=== PATIENT | female | born 1945 | race Caucasian/White ===

== ENCOUNTER → 2018-03-20 08:23 | Outpatient (CLI) | payer MEDICARE, SELFPAY ==
[2018-03-20 08:47] LABS: Basophils % 0.6 % (0.1-2.0); Eosinophils # 0.2 K/mm3 (0.0-0.4); Eosinophils % 3.8 % (0.1-12.0); Hematocrit 37.1 % (37.0-47.0); Hemoglobin 11.5 g/dL (12.2-16.2); Lymphocytes # 1.4 K/mm3 (0.7-4.5); Mean Corpuscular Hemoglobin 27.1 pg (27.0-31.2); Mean Corpuscular Volume 87.4 fl (81-99); Mean Platelet Volume 8.7 fl (7.4-10.4); Monocytes # 0.3 K/mm3 (0.1-1.0); Monocytes % 5.2 % (1.7-9.3); Neutrophils # 3.6 K/mm3 (1.8-7.8); Neutrophils % 65.3 % (37.0-80.0); Platelet Count 288 K/mm3 (142-424); Red Blood Count 4.24 M/mm3 (4.20-5.40); Red Cell Distribution Width 13.8 % (11.5-17.5); White Blood Count 5.4 K/mm3 (4.8-10.8)
[2018-03-20 13:37] LABS: Alanine Aminotransferase 14 U/L (12-78); Albumin Level 3.7 gm/dL (3.4-5.0); Alkaline Phosphatase 82 U/L (46-116); Anion Gap 6.4 mEq/L (5-15); Aspartate Amino Transferase 16 U/L (15-37); Bilirubin,Total 0.2 mg/dL (0.2-1.0); Blood Urea Nitrogen 12 mg/dL (7-18); Calcium 9.2 mg/dL (8.5-10.1); Carbon Dioxide 29 mmol/L (21.0-32.0); Chloride 105 mmol/L (98-107); Chol/HDL Ratio 3.4 (1-3.5); Cholesterol 166 mg/dL (140-200); Creatinine,Serum 0.99 mg/dL (0.55-1.02); Estimated Glomerular Filt Rate 55 ml/min (>60); GFR (African American) 66 ML/MIN (>60); Globulin 3.6 gm/dl (1.3-3.2); Glucose 102 mg/dL (74-106); HDL Cholesterol 49 mg/dL (29-89); LDL Cholesterol 100 mg/dL (0-130); Potassium 4.4 mmoL/L (3.5-5.1); Sodium 136 mmol/L (136-145); Thyroid Stimulating Hormone 1.71 uIU/ml (0.358-3.740); Total Protein,Serum 7.3 gm/dL (6.4-8.2); Triglycerides 83 mg/dL (30-200); VLDL Cholesterol 17 mg/dL (0-40)
[2018-03-22 06:17] LABS: Folate 18.1 ng/mL (>3.0); Vitamin B12 361 pg/mL (232-1245)
== END ==
PROVIDERS: Visit Provider Nurse Practitioner Family
DX: E53.8 Deficiency of other specified B group vitamins (principal); I10 Essential (primary) hypertension; E03.9 Hypothyroidism, unspecified; E78.5 Hyperlipidemia, unspecified; N28.9 Disorder of kidney and ureter, unspecified
CPT/HCPCS: 36415; 80053; 80061; 82607; 82746; 84443; 85025

== ENCOUNTER → 2018-06-15 14:53 | Outpatient (CLI) | payer MEDICARE, SELFPAY ==
--- NOTE | 2018-06-15 14:58 | XR_ITS ---
XR thoracic spine 3V Ordering Physician: Munira Contreras Patient Age: 73 years: Female HISTORY: ITS.REASON: ACUTE RT SIDE THORACIC BACK PAIN TECHNIQUE: AP lateral and oblique views of the thoracic spine COMPARISON :AP lateral chest. May 2010 FINDINGS Less than optimal but adequate visualization of the thoracic spine the lateral view. See no fracture nor subluxation. There are some perhaps some early degenerative disc changes , On AP view there is a notable dextroscoliosis through the mid & lower T-spine... Estimate likely near 20 degrees dextroscoliosis here. With this there is some disc space narrowing and marginal osteophytes most evident to the left at T9-10. Associated more pronounced levoscoliosis roughly 25 degrees incidentally noted upper L-spine & noted. It from pedicles intact. The descending aorta is tortuous and is a hiatal hernia seen on April 2017 CT chest which accounts for additional left paraspinal density the distal above GE junction. No new findings at the right margin or aspect of T-spine. No acute compression fracture Elevation right hemidiaphragm versus left again noted. ... IMPRESSION...... No acute fracture or findings at the thoracic spine. Overall Stable appearance Again note Moderate gradual dextroscoliosis through the mid & lower T-spine; with this degenerative disc space narrowing, reactive endplate changes and marginal osteophytes most notable to the left at T9/10 (this seen on previous CT study from April 2017 appears to be stable feature) More pronounced levoscoliosis upper L-spine again noted as well yields disc space narrowing to the right at several levels upper L-spine
== END ==
PROVIDERS: PCP Internal Medicine Adolescent Medicine; Visit Provider Nurse Practitioner Family
DX: M54.6 Pain in thoracic spine (principal)
CPT/HCPCS: 72072

== ENCOUNTER → 2019-03-26 08:52 | Outpatient (CLI) | payer MEDICARE, SELFPAY ==
--- NOTE | 2019-03-26 08:56 | XR_ITS ---
XR DEXA axial skeleton HISTORY: ITS.REASON: OSTEOPENIA ORDERING PHYSICIAN: Munira Contreras APRN PATIENT AGE: 73 years COMPARISON: None FINDINGS: The BMD measured at the Forearm Radius 33% femoral neck is 0.646 g/cm squared with a T score of -2.7. This is considered Osteoporotic according to the World Health Organization criteria. Fracture risk is High. Treatment is advised. The L1-L4 density has a T score of -0.9 and the left femoral neck density has a T score of -2.6. IMPRESSION: Osteoporosis with high fracture risk. Treatment is advised. Suggest follow-up exam in one year to monitor therapy
[2019-03-26 10:18] LABS: Basophils % 0.7 % (0.1-2.0); Eosinophils # 0.1 K/mm3 (0.0-0.4); Eosinophils % 2.2 % (0.1-12.0); Hematocrit 38.4 % (37.0-47.0); Hemoglobin 12.2 g/dL (12.2-16.2); Lymphocytes # 1.3 K/mm3 (0.7-4.5); Lymphocytes % 26.8 % (10-50); Mean Corpuscular HGB Conc 31.9 g/dL (31.8-35.4); Mean Corpuscular Hemoglobin 26.1 pg (27.0-31.2); Mean Platelet Volume 8.1 fl (7.4-10.4); Monocytes # 0.3 K/mm3 (0.1-1.0); Monocytes % 6.2 % (1.7-9.3); Neutrophils # 3.2 K/mm3 (1.8-7.8); Neutrophils % 64.1 % (37.0-80.0); Platelet Count 257 K/mm3 (142-424); Red Blood Count 4.68 M/mm3 (4.20-5.40)
[2019-03-26 11:12] LABS: Alanine Aminotransferase 16 U/L (12-78); Albumin Level 3.8 gm/dL (3.4-5.0); Alkaline Phosphatase 84 U/L (46-116); Anion Gap 13.8 mEq/L (5-15); Aspartate Amino Transferase 13 U/L (15-37); Bilirubin,Total 0.3 mg/dL (0.2-1.0); Blood Urea Nitrogen 18 mg/dL (7-18); Calcium 9.3 mg/dL (8.5-10.1); Carbon Dioxide 27 mmol/L (21.0-32.0); Chloride 104 mmol/L (98-107); Chol/HDL Ratio 3.5 (1-3.5); Cholesterol 173 mg/dL (140-200); Creatinine,Serum 0.98 mg/dL (0.55-1.02); Estimated Glomerular Filt Rate 55 ml/min (>60); GFR (African American) 67 ML/MIN (>60); Globulin 3.8 gm/dl (1.3-3.2); Glucose 99 mg/dL (74-106); HDL Cholesterol 49 mg/dL (29-89); LDL Cholesterol 108 mg/dL (0-130); Potassium 4.8 mmoL/L (3.5-5.1); Sodium 140 mmol/L (136-145); Thyroid Stimulating Hormone 2.71 uIU/ml (0.358-3.740); Total Protein,Serum 7.6 gm/dL (6.4-8.2); Triglycerides 80 mg/dL (30-200); VLDL Cholesterol 16 mg/dL (0-40)
[2019-03-27 06:08] LABS: Vitamin D 25 Hydroxy 25.8 ng/mL (30.0-100.0)
[2019-03-27 08:33] LABS: Vitamin B12 323 pg/mL (232-1245)
== END ==
PROVIDERS: PCP Internal Medicine Adolescent Medicine; Visit Provider Nurse Practitioner Family
DX: M85.89 Other specified disorders of bone density and structure, multiple sites (principal); Z13.820 Encounter for screening for osteoporosis; I10 Essential (primary) hypertension; E78.5 Hyperlipidemia, unspecified; E03.9 Hypothyroidism, unspecified; E53.8 Deficiency of other specified B group vitamins
CPT/HCPCS: 36415; 77080; 80053; 80061; 82607; 82652; 84443; 85025

== ENCOUNTER → 2019-06-19 14:39 | Outpatient (CLI) | payer MEDICARE, SELFPAY ==
--- NOTE | 2019-06-19 14:42 | MR_ITS ---
MR lumbar spine wo con, MR 3-d myelogram/MRCP HISTORY: PT states low back pain x8-10months. LT side low back pain, LT leg and groin pain. Hard to walk. Low back on LT side feels swollen. Pain has gotten worse. ITS.REASON: LOW BACK PAIN, UNSPECIFIED BACK PAIN LATERALLY, UNSPECIFIED ORDERING PHYSICIAN: Munira Contreras APRN PATIENT AGE: 74 years Comparison: None TECHNIQUE: Standard multiplanar multiecho sequences are performed without contrast. 3-D MIP and myelographic images are also rendered and reviewed FINDINGS: The spinal cord ends at the L1 level. There is mild lumbar scoliosis convex left with a rotary component with multilevel degenerative changes as described below. T10-T11: Degenerative disc disease with mild left foraminal narrowing from facet hypertrophic change. T11-T12: Mild degenerative disc disease with mild bulging disc with mild right-sided foraminal narrowing. T12-L1: Degenerative disc disease with bulging disc which is eccentric toward the right with mild right-sided foraminal narrowing. L1-L2: Degenerative disc disease with bulging discs somewhat eccentric toward the right with bilateral foraminal narrowing right greater than left. L2-L3: Degenerative disc disease with concentric bulging disc and facet hypertrophic change with moderate severe right-sided foraminal narrowing and mild left foraminal narrowing. L3-L4: Mild degenerative disc disease with mild bulging disc L4-5: Severe degenerative disc disease with type II endplate changes with bulging disc with associated facet and ligamentum flavum hypertrophy with moderate to severe left-sided foraminal narrowing and moderate left-sided lateral recess narrowing. There is a broad-based left foraminal and lateral disc protrusion with disc osteophyte complex contributing to the foraminal narrowing on the left. L5-S1: Degenerative disc disease with bulging disc along with facet and ligamentum flavum hypertrophy. There is severe left-sided foraminal narrowing from the bulging disc and facet hypertrophic change and moderate right-sided foraminal narrowing. No canal stenosis or extruded herniated disc. IMPRESSION: Abnormal MRI of the lumbar spine with multilevel lumbar spondylosis with degenerative disc disease, bulging disc, and facet and ligamentum flavum hypertrophy. This results in varying degrees of lateral recess and foraminal narrowing at multiple levels. Please see above for detailed description at each level. No disc herniation or canal stenosis.
== END ==
PROVIDERS: PCP Internal Medicine Adolescent Medicine; Visit Provider Nurse Practitioner Family
DX: M54.5 Low back pain (principal)
CPT/HCPCS: 72148; 76376

== ENCOUNTER → 2019-07-03 10:33 | Outpatient (POV) | payer MEDICARE, SELFPAY ==
[2019-07-03 10:40] VITALS: BP 190/92; PULSE 84; RESP 18; O2SAT 98; BMI 36.9
--- NOTE | 2019-07-03 12:19 | HMH.PMCON ---
Assessment and Plan (1) Spinal stenosis, lumbar region with neurogenic claudication Current visit: Yes Status: Chronic Category: Medical Code(s): M48.062 - Spinal stenosis, lumbar region with neurogenic claudication (2) Degenerative joint disease (DJD) of lumbar spine Current visit: Yes Status: Chronic Qualifiers: Spinal osteoarthritis complication: with radiculopathy Qualified Code(s): M47.26 - Other spondylosis with radiculopathy, lumbar region Category: Medical Code(s): M47.816 - Spondylosis without myelopathy or radiculopathy, lumbar region (3) Lumbar radiculopathy Current visit: Yes Status: Chronic Category: Medical Code(s): M54.16 - Radiculopathy, lumbar region - Assessment and plan all Dx Assessment and Plan for all problems:: Patient and I discussed different options. We will start with lumbar epidural steroid injection L4-L5 patient is not on any anticoagulation therapy. I believe it would be beneficial given her symptomology. I also replete discussed and provided information in regards to the mild procedure. Patient's been instructed to call the office if she has any issues prior to her next appointment. Dr. Dick has reviewed this note and agrees with this plan of care. This note was dictated using voice recognition software and may contain errors or omissions HPI - Data of Consult Consult date: 07/03/19 Requesting Physician: Ani Ibrahim APRN Primary Care Provider: Kyree Easley MD - Consult Narrative Reason for consult: Back pain, leg pain History of present illness: Ms. Hollingsworth is a 74 year old female who presents today for consultation in regards to her low back and leg pain. Patient has updated MRI showing severe degenerative disc disease along with ligamentum flavum hypertrophy at L4-L5 L5-S1. Patient states that her pain is worse when she standing or walking. She finds her self leaning forward to help relieve the pain. Patient and I had a thorough discussion in regards to her MRI. She rates her pain a 4 out of 10. She has had pain for several years however it is definitely worsened and it is now affecting her activities of daily living. She states that she is trying to continue a home stretching program. She utilizes heat and elevation. She has numbness and tingling in her left leg. CC: Ani Ibrahim APRN [facility] History I have reviewed the patient's past medical history: Yes Medical History: Reports:: Gastroesophageal Reflux Disease(GERD), Hyperlipidemia, Hypertension *Have you ever received a pneumonia vaccine?: Yes *Have you received a flu vaccine this season?: Yes Other Medical History: Reports: Arthritis, Thyroid Disease Laterality Cases: Right: Total Hip Replacement Other Surgeries: Yes: Cholecystectomy - *Social History Smoking Status: Unknown if ever smoked Alcohol Intake: never Substance Use Type: denies use *Occupational Status:: employed Housing: house Household Members: family *Travel in the last 8 weeks: None Family Hx:: No significant family history Review of Systems - Review of Systems ROS General: no recent weight change, no fever, no sleep disturbances Respiratory: no cough, no shortness of air, no recurring pulmonary infections Cardiovascular/Peripheral Vascular: No chest pain, No palpitations, no edema, no shortness of breath. Gastrointestinal: no incontinence, normal bowel movements reported Genitourinary: no incontinence Musculoskeletal: Back pain, leg pain Psychiatric: normal mood/ affect Neurological: Weakness in bilateral lower extremities with standing and walking, [denies balance issues] Meds Home Medications Medication Instructions Recorded Confirmed Type aspirin 81 mg tablet,delayed 81 mg PO DAILY tab 02/28/18 06/20/19 History release atorvastatin 40 mg tablet 40 mg PO DAILY tab 02/28/18 06/20/19 History esomeprazole magnesium 40 mg 40 mg PO DAILY cap 02/28/18 06/20/19 History capsu
--- NOTE | 2019-07-03 12:22 | P.CONS_ITS ---
Assessment and Plan (1) Spinal stenosis, lumbar region with neurogenic claudication Current visit: Yes Status: Chronic Category: Medical Code(s): M48.062 - Spinal stenosis, lumbar region with neurogenic claudication (2) Degenerative joint disease (DJD) of lumbar spine Current visit: Yes Status: Chronic Qualifiers: Spinal osteoarthritis complication: with radiculopathy Qualified Code(s): M47.26 - Other spondylosis with radiculopathy, lumbar region Category: Medical Code(s): M47.816 - Spondylosis without myelopathy or radiculopathy, lumbar region (3) Lumbar radiculopathy Current visit: Yes Status: Chronic Category: Medical Code(s): M54.16 - Radiculopathy, lumbar region - Assessment and plan all Dx Assessment and Plan for all problems:: Patient and I discussed different options. We will start with lumbar epidural steroid injection L4-L5 patient is not on any anticoagulation therapy. I believ e it would be beneficial given her symptomology. I also replete discussed and provided information in regards to the mild procedure. Patient's been instructed to call the office if she has any issues prior to her next appointment. Dr. Dick has reviewed this note and agrees with this plan of care. This note was dictated using voice recognition software and may contain errors or omissions HPI - Data of Consult Consult date: 07/03/19 Requesting Physician: Ani Ibrahim APRN Primary Care Provider: Kyree Easley MD - Consult Narrative Reason for consult: Back pain, leg pain History of present illness: Ms. Hollingsworth is a 74 year old female who presents today for consultation in regards to her low back and leg pain. Patient has updated MRI showing severe degenerative disc disease along with ligamentum flavum hypertrophy at L4-L5 L5- S1. Patient states that her pain is worse when she standing or walking. She finds her self leaning forward to help relieve the pain. Patient and I had a thorough discussion in regards to her MRI. She rates her pain a 4 out of 10. She has had pain for several years however it is definitely worsened and it is now affecting her activities of daily living. She states that she is trying to continue a home stretching program. She utilizes heat and elevation. She has numbness and tingling in her left leg. CC: Ani Ibrahim APRN [facility] History I have reviewed the patient's past medical history: Yes Medical History: Reports:: Gastroesophageal Reflux Disease(GERD), Hyperlipidemia, Hypertension *Have you ever received a pneumonia vaccine?: Yes *Have you received a flu vaccine this season?: Yes Other Medical History: Reports: Arthritis, Thyroid Disease Laterality Cases: Right: Total Hip Replacement Other Surgeries: Yes: Cholecystectomy - *Social History Smoking Status: Unknown if ever smoked Alcohol Intake: never Substance Use Type: denies use *Occupational Status:: employed Housing: house Household Members: family *Travel in the last 8 weeks: None Family Hx:: No significant family history Review of Systems - Review of Systems ROS General: no recent weight change, no fever, no sleep disturbances Respiratory: no cough, no shortness of air, no recurring pulmonary infections Cardiovascular/Peripheral Vascular: No chest pain, No palpitations, no edema, no shortness of breath. Gastrointestinal: no incontinence, normal bowel movements reported Genitourinary: no incontinence Musculoskeletal: Back pain, leg pain Psychiatric: normal mood/ affect Neurological: Weakness in bilateral lower ext
== END ==
PROVIDERS: PCP Internal Medicine Adolescent Medicine; Visit Provider Clinical Nurse Specialist Family Health
DX: M48.062 Spinal stenosis, lumbar region with neurogenic claudication (principal); M47.816 Spondylosis without myelopathy or radiculopathy, lumbar region
CPT/HCPCS: 99202

== ENCOUNTER → 2019-09-03 11:15 | Outpatient (POV) | payer MEDICARE, SELFPAY ==
[2019-09-03 11:36] VITALS: BP 133/85; PULSE 116; RESP 18; O2SAT 98; BMI 36.3
--- NOTE | 2019-09-03 12:10 | HMH.PAINSOAP ---
[facility] Pain Management SOAP Note Subjective:: Patient is a pleasant 74-year-old white female who presents today for follow-up after lumbar epidural steroid injection. Patient had 100% relief of her symptoms up until just recently. She does rate her pain a 0 out of 10 today. Patient and I discussed finishing her series of 3 epidurals. She like to move forward with this. Patient is asking for medicine to help with her back pain in the interim. I discussed with her utilizing an anti-inflammatory. ROS General: no recent weight change, no fever, no sleep disturbances Respiratory: no cough, no shortness of air, no recurring pulmonary infections Cardiovascular/Peripheral Vascular: No chest pain, No palpitations, no edema, no shortness of breath. Gastrointestinal: no incontinence, normal bowel movements reported Genitourinary: no incontinence Musculoskeletal: Back pain, leg pain Psychiatric: normal mood/ affect Neurological: [denies weakness in extremities], [denies balance issues] Objective:: Physical Exam General: Alert and oriented x3, no acute distress, pleasant and cooperative, [on room air] Lungs: Resps E/U, Symmetrical chest expansion, Eyes: PERRL Musculoskeletal: Flexion and extension of lumbar spine somewhat guarded secondary to pain, deep tendon reflexes normal, strength in upper and lower extremities [5/5], lightly antalgic gait noted Neurological: speech clear, automatic embroidery machine tender equal, no gross sensory deficits Assessment:: Degenerative disc disease lumbar spine with lumbar radiculopathy Plan:: We will do a repeat L4-L5 lumbar epidural steroid injection given the efficacy of it in the past I believe it would be beneficial. Patient's been instructed to call the office if she has any issues prior to her next appointment. She is not on any anticoagulation therapy. Dr. Dick has reviewed this note and agrees with this plan of care. This note was dictated using voice recognition software and may contain errors or omissions [facility] History I have reviewed the patient's past medical history: Yes Medical History: Reports:: Gastroesophageal Reflux Disease(GERD), Hyperlipidemia, Hypertension *Have you ever received a pneumonia vaccine?: Yes *Have you received a flu vaccine this season?: No Other Medical History: Reports: Arthritis, Thyroid Disease Laterality Cases: Right: Total Hip Replacement Other Surgeries: Yes: Cholecystectomy - *Social History Smoking Status: Unknown if ever smoked Alcohol Intake: never Substance Use Type: denies use *Occupational Status:: other Housing: house Household Members: family *Travel in the last 8 weeks: None Family Hx:: No significant family history
--- NOTE | 2019-09-03 12:13 | P.CONS_ITS ---
[facility] Pain Management SOAP Note Subjective:: Patient is a pleasant 74-year-old white female who presents today for follow-up after lumbar epidural steroid injection. Patient had 100% relief of her symptoms up until just recently. She does rate her pain a 0 out of 10 today. Patient and I discussed finishing her series of 3 epidurals. She like to move forward with this. Patient is asking for medicine to help with her back pain in the interim. I discussed with her utilizing an anti-inflammatory. ROS General: no recent weight change, no fever, no sleep disturbances Respiratory: no cough, no shortness of air, no recurring pulmonary infections Cardiovascular/Peripheral Vascular: No chest pain, No palpitations, no edema, no shortness of breath. Gastrointestinal: no incontinence, normal bowel movements reported Genitourinary: no incontinence Musculoskeletal: Back pain, leg pain Psychiatric: normal mood/ affect Neurological: [denies weakness in extremities], [denies balance issues] Objective:: Physical Exam General: Alert and oriented x3, no acute distress, pleasant and cooperative, [on room air] Lungs: Resps E/U, Symmetrical chest expansion, Eyes: PERRL Musculoskeletal: Flexion and extension of lumbar spine somewhat guarded secondary to pain, deep tendon reflexes normal, strength in upper and lower extremities [5/5], lightly antalgic gait noted Neurological: speech clear, mechanical engineering advisor equal, no gross sensory deficits Assessment:: Degenerative disc disease lumbar spine with lumbar radiculopathy Plan:: We will do a repeat L4-L5 lumbar epidural steroid injection given the efficacy of it in the past I believe it would be beneficial. Patient's been instructed to call the office if she has any issues prior to her next appointment. She is not on any anticoagulation therapy. Dr. Dick has reviewed this note and agrees with this plan of care. This note was dictated using voice recognition software and may contain errors or omissions [facility] History I have reviewed the patient's past medical history: Yes Medical History: Reports:: Gastroesophageal Reflux Disease(GERD), Hyperlipidemia, Hypertension *Have you ever received a pneumonia vaccine?: Yes *Have you received a flu vaccine this season?: No Other Medical History: Reports: Arthritis, Thyroid Disease Laterality Cases: Right: Total Hip Replacement Other Surgeries: Yes: Cholecystectomy - *Social History Smoking Status: Unknown if ever smoked Alcohol Intake: never Substance Use Type: denies use *Occupational Status:: other Housing: house Household Members: family *Travel in the last 8 weeks: None Family Hx:: No significant family history
== END ==
PROVIDERS: PCP Internal Medicine Adolescent Medicine; Visit Provider Clinical Nurse Specialist Family Health
DX: M51.16 Intervertebral disc disorders with radiculopathy, lumbar region (principal)
CPT/HCPCS: 99212

== ENCOUNTER → 2019-10-01 08:24 | Outpatient (CLI) | payer MEDICARE, SELFPAY ==
[2019-10-01 10:51] LABS: Alanine Aminotransferase 12 U/L (12-78); Albumin Level 3.3 gm/dL (3.4-5.0); Alkaline Phosphatase 60 U/L (46-116); Aspartate Amino Transferase 14 U/L (15-37); Bilirubin,Total 0.3 mg/dL (0.2-1.0); Blood Urea Nitrogen 9 mg/dL (7-18); Calcium 8.4 mg/dL (8.5-10.1); Carbon Dioxide 25 mmol/L (21.0-32.0); Chloride 106 mmol/L (98-107); Chol/HDL Ratio 4.1 (1-3.5); Cholesterol 154 mg/dL (140-200); Creatinine,Serum 0.85 mg/dL (0.55-1.02); Estimated Glomerular Filt Rate 65 ml/min (>60); GFR (African American) 79 ML/MIN (>60); Globulin 3.3 gm/dl (1.3-3.2); Glucose 95 mg/dL (74-106); HDL Cholesterol 38 mg/dL (29-89); LDL Cholesterol 91 mg/dL (0-130); Sodium 142 mmol/L (136-145); Thyroid Stimulating Hormone 1.36 uIU/ml (0.358-3.740); Total Protein,Serum 6.6 gm/dL (6.4-8.2); Triglycerides 126 mg/dL (30-200); VLDL Cholesterol 25 mg/dL (0-40)
[2019-10-02 09:20] LABS: Vitamin D 25 Hydroxy 44.3 ng/mL (30.0-100.0)
== END ==
PROVIDERS: Visit Provider Nurse Practitioner Family
DX: I10 Essential (primary) hypertension (principal); E78.5 Hyperlipidemia, unspecified; E03.9 Hypothyroidism, unspecified; E55.9 Vitamin D deficiency, unspecified; M81.0 Age-related osteoporosis without current pathological fracture
CPT/HCPCS: 36415; 80053; 80061; 82652; 84443

== ENCOUNTER → 2019-10-29 09:37 | Outpatient (POV) | payer MEDICARE, SELFPAY ==
[2019-10-29 10:20] VITALS: BP 151/67; PULSE 88; RESP 18; O2SAT 98; BMI 35.7
--- NOTE | 2019-10-29 10:26 | HMH.PAINSOAP ---
[facility] Pain Management SOAP Note Subjective:: Patient is a pleasant 74-year-old white female who presents today for0 follow-up. Patient rates her pain a 0 out of 10 she has completed her second lumbar epidural steroid injection. Patient overall doing well she states that when she sleeps at nighttime she does very good. Patient and I discussed her next step. We also discussed adding gabapentin at nighttime to see if this is beneficial for her. Patient would like to move forward with this. She denies trying this previously. ROS General: no recent weight change, no fever, no sleep disturbances Respiratory: no cough, no shortness of air, no recurring pulmonary infections Cardiovascular/Peripheral Vascular: No chest pain, No palpitations, no edema, no shortness of breath. Gastrointestinal: no new onset incontinence, normal bowel movements reported Genitourinary: no new onset incontinence Musculoskeletal: Back pain, left leg pain Psychiatric: normal mood/ affect Neurological: [denies new onset weakness in extremities], [denies new onset balance issues] Objective:: Physical Exam General: Alert and oriented x3, no acute distress, pleasant and cooperative, [on room air] Lungs: Resps E/U, Symmetrical chest expansion, Eyes: PERRL Musculoskeletal: Flexion and extension of lumbar spine somewhat guarded secondary to pain, deep tendon reflexes normal, strength in upper and lower extremities [5/5], slightly antalgic gait noted Neurological: speech clear, brusher machine equal, no gross sensory deficits Assessment:: Degenerative disc disease lumbar spine with lumbar radiculopathy Plan:: We will start the patient on gabapentin 100 mg 1 p.o. nightly. We will follow-up with her in 1 month reassess her symptoms at that time she is been instructed to call the office if she has any issues prior to her next appointment. Dr. Dick has reviewed this note and agrees with this plan of care. This note was dictated using voice recognition software and may contain errors or omissions [facility] History I have reviewed the patient's past medical history: Yes Medical History: Reports:: Gastroesophageal Reflux Disease(GERD), Hyperlipidemia, Hypertension Denies:: Diabetes Mellitus Type 1, Diabetes Mellitus Type 2 *Have you ever received a pneumonia vaccine?: Yes *Have you received a flu vaccine this season?: Yes Other Medical History: Reports: Arthritis, Thyroid Disease Laterality Cases: Right: Total Hip Replacement Other Surgeries: Yes: Cholecystectomy - *Social History Smoking Status: Unknown if ever smoked Alcohol Intake: never Substance Use Type: denies use *Occupational Status:: other Housing: house Household Members: family *Travel in the last 8 weeks: None Family Hx:: No significant family history
--- NOTE | 2019-10-29 10:29 | P.CONS_ITS ---
[facility] Pain Management SOAP Note Subjective:: Patient is a pleasant 74-year-old white female who presents today for0 follow- up. Patient rates her pain a 0 out of 10 she has completed her second lumbar epidural steroid injection. Patient overall doing well she states that when she sleeps at nighttime she does very good. Patient and I discussed her next step. We also discussed adding gabapentin at nighttime to see if this is beneficial for her. Patient would like to move forward with this. She denies trying this previously. ROS General: no recent weight change, no fever, no sleep disturbances Respiratory: no cough, no shortness of air, no recurring pulmonary infections Cardiovascular/Peripheral Vascular: No chest pain, No palpitations, no edema, no shortness of breath. Gastrointestinal: no new onset incontinence, normal bowel movements reported Genitourinary: no new onset incontinence Musculoskeletal: Back pain, left leg pain Psychiatric: normal mood/ affect Neurological: [denies new onset weakness in extremities], [denies new onset balance issues] Objective:: Physical Exam General: Alert and oriented x3, no acute distress, pleasant and cooperative, [on room air] Lungs: Resps E/U, Symmetrical chest expansion, Eyes: PERRL Musculoskeletal: Flexion and extension of lumbar spine somewhat guarded secondary to pain, deep tendon reflexes normal, strength in upper and lower extremities [5/5], slightly antalgic gait noted Neurological: speech clear, house wrecker equal, no gross sensory deficits Assessment:: Degenerative disc disease lumbar spine with lumbar radiculopathy Plan:: We will start the patient on gabapentin 100 mg 1 p.o. nightly. We will follow- up with her in 1 month reassess her symptoms at that time she is been instructed to call the office if she has any issues prior to her next appointment. Dr. Dick has reviewed this note and agrees with this plan of care. This note was dictated using voice recognition software and may contain errors or omissions [facility] History I have reviewed the patient's past medical history: Yes Medical History: Reports:: Gastroesophageal Reflux Disease(GERD), Hyperlipidemia, Hypertension Denies:: Diabetes Mellitus Type 1, Diabetes Mellitus Type 2 *Have you ever received a pneumonia vaccine?: Yes *Have you received a flu vaccine this season?: Yes Other Medical History: Reports: Arthritis, Thyroid Disease Laterality Cases: Right: Total Hip Replacement Other Surgeries: Yes: Cholecystectomy - *Social History Smoking Status: Unknown if ever smoked Alcohol Intake: never Substance Use Type: denies use *Occupational Status:: other Housing: house Household Members: family *Travel in the last 8 weeks: None Family Hx:: No significant family history
== END ==
PROVIDERS: PCP Internal Medicine Adolescent Medicine; Visit Provider Clinical Nurse Specialist Family Health
DX: M51.16 Intervertebral disc disorders with radiculopathy, lumbar region (principal)
CPT/HCPCS: 99212

== ENCOUNTER → 2019-11-27 09:30 | Outpatient (POV) | payer MEDICARE, SELFPAY ==
[2019-11-27 10:35] VITALS: BP 182/85; PULSE 85; RESP 18; O2SAT 99; BMI 26.1
--- NOTE | 2019-11-27 11:25 | P.CONS_ITS ---
[facility] Pain Management SOAP Note Subjective:: Patient is a pleasant 74-year-old white female who presents today for follow-up. Patient rates her pain a 3 out of 10 overall doing well. Patient is on gabapentin 100 mg at nighttime and is doing extremely well with this is helping her sleep. Patient has had 2 lumbar epidural steroid injections and is done extremely well with this getting 80% relief. She like to set 1 up in December. Most of her pain is in her back. ROS General: no recent weight change, no fever, no sleep disturbances Respiratory: no cough, no shortness of air, no recurring pulmonary infections Cardiovascular/Peripheral Vascular: No chest pain, No palpitations, no edema, no shortness of breath. Gastrointestinal: no new onset incontinence, normal bowel movements reported Genitourinary: no new onset incontinence Musculoskeletal: Back pain Psychiatric: normal mood/ affect Neurological: [denies new onset weakness in extremities], [denies new onset balance issues] Objective:: Physical Exam General: Alert and oriented x3, no acute distress, pleasant and cooperative, [on room air] Lungs: Resps E/U, Symmetrical chest expansion, Eyes: PERRL Musculoskeletal: Flexion and extension of lumbar spine somewhat guarded secondary to pain, deep tendon reflexes normal, strength in upper and lower extremities [5/5], [abnormal gait noted] Neurological: speech clear, 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 We will continue her on her gabapentin 100 mg 1 p.o. daily. She has been instructed to call the office if she has any issues prior to her next appointment. Dr. Dick has reviewed this note and agrees with this plan of care. This note was dictated using voice recognition software and may contain errors or omissions [facility] History I have reviewed the patient's past medical history: Yes Medical History: Reports:: Gastroesophageal Reflux Disease(GERD), Hyperlipidemia, Hypertension Denies:: Diabetes Mellitus Type 1, Diabetes Mellitus Type 2 *Have you ever received a pneumonia vaccine?: Yes *Have you received a flu vaccine this season?: Yes Other Medical History: Reports: Arthritis, Thyroid Disease Laterality Cases: Right: Total Hip Replacement Other Surgeries: Yes: Cholecystectomy - *Social History Smoking Status: Unknown if ever smoked Alcohol Intake: never Substance Use Type: denies use *Occupational Status:: other Housing: house Household Members: family *Travel in the last 8 weeks: None Family Hx:: No significant family history
== END ==
PROVIDERS: PCP Internal Medicine Adolescent Medicine; Visit Provider Clinical Nurse Specialist Family Health
DX: M51.16 Intervertebral disc disorders with radiculopathy, lumbar region (principal)
CPT/HCPCS: 99212

== ENCOUNTER → 2020-08-18 11:31 | Outpatient (CLI) | payer MEDICARE, SELFPAY ==
[2020-08-18 13:31] LABS: Chloride 103 mmol/L (98-107); Potassium 4.9 mmoL/L (3.5-5.1); Sodium 141 mmol/L (136-145)
[2020-08-18 13:34] LABS: Alanine Aminotransferase 10 U/L (12-78); Albumin Level 4.1 g/dl (3.5-5.0); Albumin/Globulin Ratio 1.4 (1.1-1.8); Alkaline Phosphatase 64 U/L (38-126); Anion Gap 15.9 mEq/L (5-15); Aspartate Amino Transferase 23 U/L (14-36); Bilirubin,Total 0.4 mg/dl (0.2-1.3); Blood Urea Nitrogen 16 mg/dl (7-17); Carbon Dioxide 27 mmol/L (22.0-30.0); Cholesterol 171 mg/dl (140-200); Estimated Glomerular Filt Rate 61 ml/min (>60); GFR (African American) 73 ML/MIN (>60); Glucose 93 mg/dl (74-100); HDL Cholesterol 50 mg/dl (40-60); Total Protein,Serum 7.1 g/dl (6.3-8.2); Triglycerides 112 mg/dl (30-150); VLDL Cholesterol 22 mg/dL (0-40)
[2020-08-18 13:48] LABS: Direct LDL Cholesterol 88.59 mg/dL (100-129)
[2020-08-18 14:06] LABS: Thyroid Stimulating Hormone 1.32 uIU/mL (0.465-4.68)
[2020-08-18 14:29] LABS: Chol/HDL Ratio 3.4 (1-3.5)
== END ==
PROVIDERS: Visit Provider Nurse Practitioner Family
DX: I10 Essential (primary) hypertension (principal); E78.5 Hyperlipidemia, unspecified; E03.9 Hypothyroidism, unspecified; M81.0 Age-related osteoporosis without current pathological fracture
CPT/HCPCS: 36415; 80053; 80061; 82306; 84443

== ENCOUNTER → 2020-08-25 12:50 | Outpatient (CLI) | payer MEDICARE, SELFPAY ==
--- NOTE | 2020-08-25 12:53 | CA_ITS ---
APPROVED REPORT EXAM: Comprehensive 2D, Doppler, and color-flow Echocardiogram Regulatory And Compliance Technician: Nika Kim RT(R) Ht: 5 ft 0 in Wt: 182lbs BSA: 1.79 BP: 132/80 mmHg Indications: HTN, hyperlipidemia, GERD, murmur 2D Dimensions LVOT 1.80 cm (M/F) 1.5-2.5 M-Mode Dimensions RVDd 2.68 cm (0.9-2.6) LVDd 4.32 cm (3.5-5.7) LVDs 3.38 cm (3.5-5.7) IVSd 0.87 cm (0.6-1.1) PWd 0.77 cm (0.6-1.1) EF (Teich) 44.30% FS 21.80% EDV (Teich) 84.00 mL ESV (Teich) 46.80 mL LV Diastology E/A Ratio 0.79 Aortic Valve LVOT Max 103.00 (70-110 cm/s) LVOT VTI 23.50 cm Mitral Valve MV A Velocity 118.00 (40-130 cm/s) Left Ventricle Left atrium is moderately enlarged, left ventricle is normal size, mild concentric left ventricular hypertrophy, visually estimated ejection fraction 55% with no regional wall motion abnormality, grade 1 diastolic dysfunction seen without tissue Doppler evidence of raise left atrial pressure. Right Ventricle Right atrium and right ventricle are mildly enlarged with normal contractility. Aortic Valve Aortic valve is thickened and calcified leaflet chordae display good mobility, there is no aortic stenosis or significant aortic insufficiency. Mitral Valve Mitral valve leaflets are minimally thickened, there is mild mitral regurgitation. Tricuspid Valve Tricuspid valve is grossly normal, there is mild tricuspid regurgitation, tricuspid regurgitation jet velocity is inadequate for calculation of the right ventricular systolic pressure. Pulmonic Valve Pulmonic valve is poorly visualized. Great Vessels Aortic root is normal size. Pericardium No significant pericardial effusion noted. Conclusion 1. Moderately enlarged left atrium, normal left ventricular size, mild concentric left ventricular hypertrophy, visually estimated ejection fraction 55% with no regional wall motion abnormality, grade 1 diastolic dysfunction seen without tissue Doppler evidence of raise left atrial pressure. 2. Mildly enlarged right atrium and right ventricle, contractility of the right ventricle is normal. 3. Mild mitral and tricuspid regurgitation. 4. No significant pericardial effusion noted. Electronically signed by : Brennan Coy, 08/25/2020 21:22:39
--- NOTE | 2020-08-25 13:41 | XR_ITS ---
PROCEDURE: XR DEXA AXIAL SKELETON CLINICAL HISTORY: AGE-RELATED OSTEOPOROSIS COMPARISON: CR DEXAAX XR DEXA axial skeleton from 03/26/2019 FINDINGS: The left forearm BMD is 0.493 with a T-score of -3.3. The left hip BMD is 0.611 with a T-score of -2.1. The lumbar spine BMD is 0.946 with a T-score of -0.9. Previously the lowest density was in the forearm with a T-score of -2.7. The bone density has decreased since the previous exam IMPRESSION: This patient is considered osteoporotic according to the World Health Organization criteria. Fracture risk is high. Treatment is advised. Based on these results a follow-up exam is recommended in 1 year. Dictated by: Pavan Bonner MD 08/26/2020 08:05 Pavan Bonner MD in [place] 08/26/2020 08:05
== END ==
PROVIDERS: PCP Internal Medicine Adolescent Medicine; Visit Provider Nurse Practitioner Family
DX: R06.00 Dyspnea, unspecified (principal); R01.1 Cardiac murmur, unspecified; I10 Essential (primary) hypertension; M81.0 Age-related osteoporosis without current pathological fracture
CPT/HCPCS: 77080; 93306

== ENCOUNTER 2020-10-07 09:30 | Outpatient (CLI) | payer MEDICARE, SELFPAY ==
[2020-10-07 10:05] VITALS: BP 141/74; PULSE 73; RESP 18; TEMP 36.6; O2SAT 95
== END 2020-10-07 10:05 | disposition home or self-care (01) ==
LOC: INF 09:35
PROVIDERS: Visit Provider Nurse Practitioner Family
DX: M81.0 Age-related osteoporosis without current pathological fracture (principal)
CPT/HCPCS: 96372; J0897

== ENCOUNTER 2021-04-07 09:30 | Outpatient (CLI) | payer MEDICARE, SELFPAY ==
[2021-04-07 09:50] VITALS: BP 163/76; PULSE 69; RESP 18; O2SAT 97
== END 2021-04-07 09:50 | disposition home or self-care (01) ==
LOC: INF 09:33
PROVIDERS: Visit Provider Nurse Practitioner Family
DX: M81.0 Age-related osteoporosis without current pathological fracture (principal)
CPT/HCPCS: 96372; J0897

== ENCOUNTER → 2021-06-22 07:55 | Outpatient (CLI) | payer MEDICARE, SELFPAY ==
[2021-06-22 08:41] LABS: Basophils % 0.8 % (0.1-2.0); Eosinophils # 0.2 K/mm3 (0.0-0.4); Eosinophils % 3.6 % (0.1-12.0); Hematocrit 36.8 % (37.0-47.0); Hemoglobin 11.8 g/dL (12.2-16.2); Lymphocytes # 1.5 K/mm3 (0.7-4.5); Lymphocytes % 27.8 % (10-50); Mean Corpuscular HGB Conc 31.9 g/dL (31.8-35.4); Mean Corpuscular Hemoglobin 25.7 pg (27.0-31.2); Mean Corpuscular Volume 80.3 fl (81-99); Mean Platelet Volume 7.6 fl (7.4-10.4); Monocytes # 0.3 K/mm3 (0.1-1.0); Monocytes % 6.5 % (1.7-9.3); Neutrophils # 3.2 K/mm3 (1.8-7.8); Neutrophils % 61.4 % (37.0-80.0); Platelet Count 281 K/mm3 (142-424); Red Blood Count 4.59 M/mm3 (4.20-5.40); Red Cell Distribution Width 16.5 % (11.5-17.5); White Blood Count 5.3 K/mm3 (4.8-10.8)
[2021-06-22 09:16] LABS: Chloride 107 mmol/L (98-107)
[2021-06-22 09:17] LABS: Potassium 4.5 mmoL/L (3.5-5.1); Sodium 142 mmol/L (136-145)
[2021-06-22 09:19] LABS: Alanine Aminotransferase 9 U/L (12-78); Anion Gap 10.5 mEq/L (5-15); Aspartate Amino Transferase 21 U/L (14-36); Blood Urea Nitrogen 12 mg/dl (7-17); Carbon Dioxide 29 mmol/L (22.0-30.0); Estimated Glomerular Filt Rate 61 ml/min (>60); GFR (African American) 73 ML/MIN (>60)
[2021-06-22 09:20] LABS: Albumin/Globulin Ratio 1.4 (1.1-1.8); Alkaline Phosphatase 70 U/L (38-126); Bilirubin,Total 0.2 mg/dl (0.2-1.3); Chol/HDL Ratio 2.8 (1-3.5); Cholesterol 137 mg/dl (140-200); Globulin 2.9 g/dL (1.3-3.2); Glucose 95 mg/dl (74-100); HDL Cholesterol 49 mg/dl (40-60); Total Protein,Serum 6.9 g/dl (6.3-8.2); Triglycerides 92 mg/dl (30-150); VLDL Cholesterol 18 mg/dL (0-40)
[2021-06-22 09:31] LABS: Direct LDL Cholesterol 63.64 mg/dL (100-129)
[2021-06-22 09:35] LABS: 25-OH Vitamin D, Total 76.5 ng/mL (30-100)
[2021-06-22 09:49] LABS: Thyroid Stimulating Hormone 2.39 uIU/mL (0.465-4.68)
[2021-06-22 15:35] LABS: Vitamin B12 > 1000 pg/mL (239-931)
== END ==
PROVIDERS: Visit Provider Nurse Practitioner Family
DX: I10 Essential (primary) hypertension (principal); E78.5 Hyperlipidemia, unspecified; E03.9 Hypothyroidism, unspecified; E53.8 Deficiency of other specified B group vitamins; E55.9 Vitamin D deficiency, unspecified; M81.0 Age-related osteoporosis without current pathological fracture
CPT/HCPCS: 36415; 80053; 80061; 82306; 82607; 84443; 85025

== ENCOUNTER → 2021-06-29 09:01 | Outpatient (POV) | payer MEDICARE, SELFPAY ==
[2021-06-29 09:31] VITALS: BP 145/70; PULSE 81; RESP 18; O2SAT 96; BMI 33.5
--- NOTE | 2021-06-29 09:45 | HMH.PAINSOAP ---
[facility] Pain Management SOAP Note Subjective:: Patient is a 76-year-old white female who presents today for follow-up. Patient was previously seen in the clinic for degenerative disc disease lumbar spine and lumbar radicular symptoms. She underwent a lumbar epidural steroid injection for which she got approximately 6 to 7 days of relief. Patient says that she had 100% relief for 5 days, her pain returned on the sixth day. Patient has tried injective therapy in the past which has not given her any significant long-term relief. She is currently on fentanyl Duragesic patch as well as gabapentin. She is continuing with pain despite the medications. She has tried physical therapy for greater than 6 weeks in the past and continues with home stretching. Patient is on Xarelto and is unable to take anticoagulation therapy. This was the patient's L4-L5 number 1 injection within our clinic. Patient was sent for psychological evaluation to determine if she was an appropriate candidate for intrathecal therapy. Patient has undergone injections in the past which only gave her, at most, 2 weeks of relief. At the patient's last visit, she did discuss intrathecal therapy and medications available for treatment. She is willing to wean on her fentanyl Duragesic patch to try morphine in her intrathecal pump. She understands she will need to be completely weaned from the medication before trial. She is in agreement. She did undergo a psychological evaluation was considered an appropriate candidate for intrathecal therapy. Patient does rate her pain a 6 out of 10 today. Review of Systems General: No recent weight changes, no fever, no sleep disturbances Respiratory: No cough, no shortness of air, no recurring pulmonary infections Cardiovascular/peripheral vascular: No chest pain, no palpitations, no edema, no shortness of breath Gastrointestinal: No new onset incontinence, normal bowel movements reported Genitourinary: No new onset incontinence Musculoskeletal: Low back pain with radiation into bilateral lower extremities Psychiatric: [Normal mood/affect] Neurological: [Denies weakness in extremities], [denies balance issues] Objective:: Physical exam General: Alert and oriented x3, no acute distress, pleasant and cooperative, [on room air] Lungs: Respirations even and unlabored, symmetrical chest expansion Eyes: PERRL Musculoskeletal: Flexion and extension of [] lumbar [spine] somewhat guarded secondary to pain, strength in upper and lower extremities [5/5], [antalgic gait noted] Neurological: Speech clear, [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 She plans to wean on her Duragesic patch of fentanyl. We discussed starting with morphine. She is in agreement. She says she has taken morphine in the past for pain which has been beneficial for her. She has tried and failed conservative therapies of physical therapy for more than 6 weeks and continued home stretching. She is unable to take anti-inflammatories due to Xarelto therapy. She has tried injective therapy in the past but has only gotten up to 2 weeks of relief. She is considered an appropriate candidate from psychological evaluation. We will schedule her for the trial and see her back afterwards for reevaluation of symptoms. She does understand she will need to hold her Xarelto prior to the trial. Risks and benefits of the procedure have been explained to the patient. Patient would like to proceed with the procedure. Patient has been instructed to contact the clinic with any concerns before the next appointment. Dr. Dick has reviewed this note and agrees with this plan of care. This note was dictated using voice recognition software and make contain errors or omissions. [facility] History I have reviewed the patient's
--- NOTE | 2021-06-29 09:51 | HMH.PAINSOAP ---
[facility] Pain Management SOAP Note Subjective:: Patient is a pleasant 76-year-old white female who presents today for follow-up. Patient was previously seen in the clinic for degenerative disc disease lumbar spine and lumbar radicular symptoms. She did undergo injective therapy and was started on Duexis. Patient says that she got excellent relief with Duexis. Unfortunately, her insurance will not cover the medication. She would have to pay [id number] $3000 for 3-month supply of the medication. She is unable to afford the medication. She says as result she has stopped the medicine. She says the injective therapy that she received in the clinic gave her relief of her lower extremity pain. Patient does report to be having a history of kidney issues as well. Patient I had a long discussion that anti-inflammatories would not be beneficial for her pain given her renal insufficiency. I have advised her to stop taking anti-inflammatories at this time. We did discuss trying a low-dose of tramadol for short time until she can undergo injective therapy. The patient did undergo lumbar epidural steroid injection at L4-L5 with 3 lumbar injections. Patient reports that she stopped coming to the clinic due to Covid. She is back today to discuss options for pain relief. She does rate her pain a 7 out of 10. Her pain is in her low back with radiation to bilateral sides and into the left leg. She is having constant pain that is not consistent with movement. She says that the pain in her left leg has changed from numbness to pain. Prior to her lumbar epidural steroid injection, she had numbness in her lower extremities. She does use a cane for ambulation. She has tried physical therapy in the past with no significant relief for 6 weeks. She is also continue with home stretching. Patient is not on any anticoagulation therapy. She is unable to take anti-inflammatories due to renal insufficiency. Review of Systems General: No recent weight changes, no fever, no sleep disturbances Respiratory: No cough, no shortness of air, no recurring pulmonary infections Cardiovascular/peripheral vascular: No chest pain, no palpitations, no edema, no shortness of breath Gastrointestinal: No new onset incontinence, normal bowel movements reported Genitourinary: No new onset incontinence Musculoskeletal: Low back pain with radiation into left leg Psychiatric: [Normal mood/affect] Neurological: [Denies weakness in extremities], [denies balance issues] Objective:: Physical exam General: Alert and oriented x3, no acute distress, pleasant and cooperative, [on room air] Lungs: Respirations even and unlabored, symmetrical chest expansion Eyes: PERRL Musculoskeletal: Flexion and extension of [] lumbar [spine] somewhat guarded secondary to pain, strength in upper and lower extremities [5/5], [antalgic gait noted] Neurological: Speech clear, [shot 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 She has had these injections in the past and has gotten significant relief up to 2 to 3 weeks at about 70 to 80%. We will order the patient tramadol 50 mg 1 tablet p.o. twice daily. She will continue with home stretching. She is unable to take anti-inflammatories due to renal insufficiency. We will see her back in the clinic after her injection for reevaluation of symptoms. She is not on any anticoagulation therapy. Risks and benefits of the procedure have been explained to the patient. Patient would like to proceed with the procedure. Possible side effects of corticosteroids have been discussed with the patient. Patient has been instructed to contact the clinic with any concerns before the next appointment. Dr. Dick has reviewed this note and agrees with this plan of care. This note was dictated us
== END ==
PROVIDERS: PCP Nurse Practitioner Family; Visit Provider Clinical Nurse Specialist Family Health
DX: M51.16 Intervertebral disc disorders with radiculopathy, lumbar region (principal)
CPT/HCPCS: 99212; G0463

== ENCOUNTER 2021-07-10 14:25 | Day surgery (SDC) | payer MEDICARE, SELFPAY ==
[2021-07-10 14:56] VITALS: BP 177/67; PULSE 91; RESP 18; TEMP 36.4; O2SAT 97; BMI 33.2
[2021-07-10 15:29] VITALS: BP 186/78; PULSE 90; RESP 18; O2SAT 96
[2021-07-10 15:30] VITALS: BP 186/78; PULSE 92; RESP 18; O2SAT 96
[2021-07-10 15:38] VITALS: BP 180/76; PULSE 91; RESP 20; O2SAT 97
--- NOTE | 2021-07-10 16:12 | HMH.PMPROC ---
- Procedure Date: 07/10/21 Time: 16:12 Anesthesiologist:: Sumeet Dick MD Complications:: None Pre-procedure Diagnosis:: Degenerative disc disease of lumbar spine with lumbar radiculopathy symptoms Post-procedure Diagnosis:: Same Indications for Procedure:: This patient is a pleasant 76-year-old white female who we are treating for low back pain with lumbar radiculopathy symptoms. She has increasing pain radiating down both legs. We will do a lumbar epidural steroid injection to see if this helps with her pain symptoms. She has benefited from these injections in the past. Procedure Details:: Informed consent was obtained and the risk and benefits of the procedure was explained to the patient. The patient was taken to the procedure room. The patient was placed prone on the procedure table. The patient was prepped and draped in sterile fashion. C-arm fluoroscopy was used to view the lumbar spine. Skin and subcutaneous tissues were anesthetized using lidocaine. I placed an 18-gauge epidural needle and advanced into the L4-L5 interspace using fluoroscopic guidance and [id number] to air. After confirmation of needle placement in the epidural space with dye I injected 2 mL of lidocaine 1.5% with Depo-Medrol 80 mg. Patient tolerated the procedure well with no complications. Plan and Disposition:: We will follow-up with this patient in 2 weeks. Will reevaluate her symptoms at that time.
== END 2021-07-10 15:39 | disposition home or self-care (01) ==
LOC: SC.PAINP 14:26
PROVIDERS: PCP Nurse Practitioner Family; Visit Provider Anesthesiology
DX: M51.16 Intervertebral disc disorders with radiculopathy, lumbar region (principal); E78.5 Hyperlipidemia, unspecified; I10 Essential (primary) hypertension; K21.9 Gastro-esophageal reflux disease without esophagitis; M19.90 Unspecified osteoarthritis, unspecified site; E03.9 Hypothyroidism, unspecified; N28.9 Disorder of kidney and ureter, unspecified; Z88.1 Allergy status to other antibiotic agents
CPT/HCPCS: 62323; J1040; Q9966

== ENCOUNTER → 2021-08-13 09:05 | Outpatient (POV) | payer MEDICARE, SELFPAY ==
[2021-08-13 09:14] VITALS: BP 155/99; PULSE 89; RESP 18; O2SAT 97; BMI 33.5
--- NOTE | 2021-08-13 09:29 | P.CONS_ITS ---
[facility] Pain Management SOAP Note Subjective:: Patient is a 76-year-old white female who presents today for follow-up after a lumbar epidural steroid injection. She is being treated for low back pain with lumbar radicular symptoms. She does have pain that goes into bilateral lower extremities and low back. She says that she got excellent relief with the injection. She rates her pain a 0 out of 10. Patient says the only time she is having pain is when she is bending forward. She says that this is intermittent. She says with bending forward the pain starts in her low back but it resolves once standing straight. She does not feel she wants to proceed with further injective therapy at this time. Her pain is appropriate at this time. Review of Systems General: No recent weight changes, no fever, no sleep disturbances Respiratory: No cough, no shortness of air, no recurring pulmonary infections Cardiovascular/peripheral vascular: No chest pain, no palpitations, no edema, no shortness of breath Gastrointestinal: No new onset incontinence, normal bowel movements reported Genitourinary: No new onset incontinence Musculoskeletal: No pain at this time Psychiatric: [Normal mood/affect] Neurological: [Denies weakness in extremities], [denies balance issues] Objective:: Physical exam General: Alert and oriented x3, no acute distress, pleasant and cooperative, [on room air] Lungs: Respirations even and unlabored, symmetrical chest expansion Eyes: PERRL Musculoskeletal: Flexion and extension of [] [spine] somewhat nonguarded, strength in upper and lower extremities [5/5], slightly antalgic gait Neurological: Speech clear, [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 She did well with her lumbar epidural steroid injection. The patient's pain is a 0 out of 10 today. Patient has been instructed to contact the clinic with any concerns before the next appointment. Dr. Dick has reviewed this note and agrees with this plan of care. This note was dictated using voice recognition software and make contain errors or omissions. [facility] History I have reviewed the patient's past medical history: Yes Medical History: Reports:: Gastroesophageal Reflux Disease(GERD), Hyperlipidemia, Hypertension Denies:: Cancer, Diabetes Mellitus Type 1, Diabetes Mellitus Type 2, MRSA, Seizures *Have you ever received a pneumonia vaccine?: Yes *Have you received a flu vaccine this season?: No Other Medical History: Reports: Arthritis, Hypothyroidism, Thyroid Disease. Denies: Blood Transfusion Reaction Laterality Cases: Right: Total Hip Replacement Other Surgeries: Yes: Cholecystectomy Amputation: No Fractures: No - *Social History Smoking Status: Never smoker Alcohol Intake: never Substance Use Type: denies use *Occupational Status:: unemployed Housing: house Household Members: spouse *Travel in the last 8 weeks: None Family Hx:: No significant family history
== END ==
PROVIDERS: PCP Internal Medicine Adolescent Medicine; Visit Provider Clinical Nurse Specialist Family Health
DX: M51.16 Intervertebral disc disorders with radiculopathy, lumbar region (principal)
CPT/HCPCS: 99212; G0463

== ENCOUNTER 2021-10-09 09:10 | Outpatient (CLI) | payer MEDICARE, SELFPAY ==
[2021-10-09 09:30] VITALS: BP 168/87; PULSE 87; RESP 18; O2SAT 98
== END 2021-10-09 09:30 | disposition home or self-care (01) ==
LOC: INF 09:12
PROVIDERS: PCP Internal Medicine Adolescent Medicine; Visit Provider Internal Medicine Adolescent Medicine
DX: M81.0 Age-related osteoporosis without current pathological fracture (principal)
CPT/HCPCS: 96372; J0897

== ENCOUNTER → 2021-11-12 08:58 | Outpatient (POV) | payer MEDICARE, SELFPAY ==
[2021-11-12 09:06] VITALS: BP 195/89; PULSE 72; RESP 18; O2SAT 96; BMI 33.5
--- NOTE | 2021-11-12 11:53 | HMH.PAINSOAP ---
[facility] Pain Management SOAP Note Subjective:: Patient is a 76-year-old who presents today for follow-up. She did undergo injective therapy with a lumbar epidural steroid injection in July 2021. She has gotten significant relief until recently. She is now having pain in her left low back area with radiation into left hip, left leg and numbness and tingling into the left foot. The pain is significantly worse below the knee. She says bending forward does not worsen or lessen the pain. She when sitting she has no pain. When she is standing, she has significant pain that also goes into the buttock. She describes the pain as sharp in nature. She is currently on methotrexate. She is not diabetic and denies being on any anticoagulation therapy. Today, she rates her pain an 8 out of 10. She would like to proceed with a repeat injection. She got up to 90% relief with her last lumbar epidural steroid injection until the last few weeks. She has tried home stretching in the past along with continued oral medications as needed. Review of Systems General: No recent weight changes, no fever, no sleep disturbances Respiratory: No cough, no shortness of air, no recurring pulmonary infections Cardiovascular/peripheral vascular: No chest pain, no palpitations, no edema, no shortness of breath Gastrointestinal: No new onset incontinence, normal bowel movements reported Genitourinary: No new onset incontinence Musculoskeletal: Low back pain with radiation into left buttock, left hip, left leg with numbness and tingling Psychiatric: [Normal mood/affect] Neurological: [Denies weakness in extremities], [denies balance issues] Objective:: Physical exam General: Alert and oriented x3, no acute distress, pleasant and cooperative Lungs: Respirations even and unlabored, symmetrical chest expansion Eyes: PERRL Musculoskeletal: Flexion and extension of lumbar [spine] somewhat guarded secondary to pain, [antalgic gait noted] Neurological: Speech clear, no gross sensory deficit Assessment:: Degenerative disc disease lumbar spine with lumbar radiculopathy symptoms Plan:: We will schedule patient for a repeat lumbar epidural steroid injection at L4-L5 area. She is not on any anticoagulation therapy. We will follow her after the injection for further evaluation of symptoms. She is got significant relief with injections in the past. Possible side effects of corticosteroids have been discussed with the patient. Risks and benefits of the procedure have been explained to the patient. Patient would like to proceed with the procedure. Patient has been instructed to contact the clinic with any concerns before the next appointment. Dr. Dick has reviewed this note and agrees with this plan of care. This note was dictated using voice recognition software and make contain errors or omissions. [facility] History I have reviewed the patient's past medical history: Yes Medical History: Reports:: Gastroesophageal Reflux Disease(GERD), Hyperlipidemia, Hypertension Denies:: Cancer, Diabetes Mellitus Type 1, Diabetes Mellitus Type 2, MRSA, Seizures *Have you ever received a pneumonia vaccine?: Yes *Have you received a flu vaccine this season?: Yes Other Medical History: Reports: Arthritis, Hypothyroidism, Thyroid Disease. Denies: Blood Transfusion Reaction Laterality Cases: Right: Total Hip Replacement Other Surgeries: Yes: Cholecystectomy Amputation: No Fractures: No - *Social History Smoking Status: Never smoker Alcohol Intake: never Substance Use Type: denies use *Occupational Status:: unemployed Housing: house Household Members: spouse *Travel in the last 8 weeks: None Family Hx:: No significant family history
== END ==
PROVIDERS: Visit Provider Clinical Nurse Specialist Family Health
DX: M51.16 Intervertebral disc disorders with radiculopathy, lumbar region (principal)
CPT/HCPCS: 99212; G0463

== ENCOUNTER 2021-12-04 13:09 | Day surgery (SDC) | payer MEDICARE, SELFPAY ==
[2021-12-04 13:22] VITALS: BP 190/82; PULSE 85; RESP 20; TEMP 36.4; O2SAT 96; BMI 33.5
--- NOTE | 2021-12-04 13:48 | HMH.PMPROC ---
- Procedure Date: 12/04/21 Time: 13:48 Anesthesiologist:: Gertrude Hampton MD Complications:: None Pre-procedure Diagnosis:: Degenerative disc disease of the lumbar spine with lumbar radiculopathy Post-procedure Diagnosis:: Same Indications for Procedure:: This patient is a very pleasant 76-year-old white female who presents today with chronic low back pain radiating to her legs related to the above diagnosis. She has trialed and failed conservative treatment including oral pain medications and home stretching program for greater than 6 weeks. He has previously undergone a lumbar epidural steroid injection and notes 90% pain relief for a few months but she states the pain has since returned. She is requesting a repeat injection today. The plan for today is for the patient to undergo epidural steroid injection under fluoroscopy at L5-S1. Procedure Details:: Informed consent was obtained and the risk and benefits of the procedure was explained to the patient. The patient was taken to the procedure room. The patient was placed prone on the procedure table. The patient was prepped and draped in sterile fashion. C-arm fluoroscopy was used to view the lumbar spine. Skin and subcutaneous tissues were anesthetized using lidocaine. I placed an 18-gauge epidural needle and advanced into the L5-S1 interspace using fluoroscopic guidance and [id number] to air and saline. After confirmation of needle placement in the epidural space with dye I injected 1 mL of lidocaine 1.0% with Depo-Medrol 80 mg. Patient tolerated the procedure well with no complications. Plan and Disposition:: We will follow-up with this patient in 2 weeks. Will reevaluate pain symptoms at that time.
[2021-12-04 13:53] VITALS: BP 182/79; PULSE 79; PULSE 83; RESP 18; O2SAT 96
[2021-12-04 14:05] VITALS: BP 166/85; PULSE 81; RESP 20; O2SAT 94
== END 2021-12-04 14:05 | disposition home or self-care (01) ==
LOC: SC.PAINP 13:10
PROVIDERS: PCP Internal Medicine Adolescent Medicine; Visit Provider Anesthesiology Pain Medicine
DX: M51.16 Intervertebral disc disorders with radiculopathy, lumbar region (principal); I10 Essential (primary) hypertension; E78.5 Hyperlipidemia, unspecified; K21.9 Gastro-esophageal reflux disease without esophagitis; E03.9 Hypothyroidism, unspecified; Z88.1 Allergy status to other antibiotic agents
CPT/HCPCS: 62323; J1040; Q9966

== ENCOUNTER → 2022-01-04 08:53 | Outpatient (POV) | payer MEDICARE, SELFPAY ==
[2022-01-04 09:07] VITALS: BP 187/72; PULSE 79; RESP 18; TEMP 36.3; O2SAT 98; BMI 33.2
--- NOTE | 2022-01-04 10:03 | HMH.PMCON ---
Assessment and Plan (1) Lumbar radiculopathy Status: Chronic Category: Medical Code(s): M54.16 - Radiculopathy, lumbar region (2) Degenerative joint disease (DJD) of lumbar spine Status: Chronic Qualifiers: Category: Medical Code(s): M47.816 - Spondylosis without myelopathy or radiculopathy, lumbar region (3) Spinal stenosis, lumbar region with neurogenic claudication Status: Chronic Category: Medical Code(s): M48.062 - Spinal stenosis, lumbar region with neurogenic claudication Patient recently underwent a lumbar epidural steroid injection under fluoroscopy at L5-S1 on December 04, 2021 and notes 70% pain relief that is ongoing at this time. She is very satisfied with the results of this injection. I discussed with the patient we will follow-up with her in 4 weeks for reassessment and possible repeat injection should the pain start to return. I discussed with the patient to contact her clinic sooner should any issues arise. [facility] #[id number] and prior drug screens were reviewed and appropriate. HPI - Data of Consult Patient: known to practice within the last 3 years Requesting Physician: Gertrude Hampton MD - Consult Narrative History of present illness: Ms. Hollingsworth is a 76 year old female CC: Gertrude Hampton MD [facility] History Medical History: Reports:: Gastroesophageal Reflux Disease(GERD), Hyperlipidemia, Hypertension Denies:: Cancer, Diabetes Mellitus Type 1, Diabetes Mellitus Type 2, MRSA, Seizures *Have you ever received a pneumonia vaccine?: Yes *Have you received a flu vaccine this season?: Yes Other Medical History: Reports: Arthritis, Hypothyroidism, Thyroid Disease. Denies: Blood Transfusion Reaction Laterality Cases: Right: Total Hip Replacement Other Surgeries: Yes: Cholecystectomy Amputation: No Fractures: No - *Social History Smoking Status: Never smoker Alcohol Intake: never Substance Use Type: denies use *Occupational Status:: retired Housing: house Household Members: spouse *Travel in the last 8 weeks: None Family Hx:: Other Review of Systems - Review of Systems Review of systems:: pertinent systems reviewed and negative unless documented below Meds Home Medications Medication Instructions Recorded Confirmed Type aspirin 81 mg tablet,delayed 81 mg PO DAILY tab 02/28/18 01/04/22 History release atorvastatin 40 mg tablet 40 mg PO DAILY tab 02/28/18 01/04/22 History esomeprazole magnesium 40 mg 40 mg PO DAILY cap 02/28/18 01/04/22 History capsule,delayed release estradiol 1 g VAGINAL ONCE 02/28/18 01/04/22 History levothyroxine 50 mcg capsule 50 mcg PO DAILY cap 02/28/18 01/04/22 History metoprolol succinate 100 mg 100 mg PO DAILY tab 02/28/18 01/04/22 History tablet,extended release 24 hr mirabegron 50 mg tablet,extended 50 mg PO Q24H 02/28/18 01/04/22 History release 24 hr erythromycin 5 mg/gram (0.5 %) eye 1 applic OPHTHALMIC DAILY 7 Days 06/20/19 01/04/22 Rx ointment #1 g Gabapentin [Neurontin 100mg 100 mg PO HS 12/07/19 01/04/22 History cap] Tramadol HCl [Tramadol 50mg 50 mg PO BID 07/10/21 01/04/22 History Tab] Allergies Allergy/AdvReac Type Severity Reaction Status Date / Time sulfamethoxazole Allergy Unknown I-RASH Verified 07/10/21 15:21 [From BACTRIM] trimethoprim [From BACTRIM] Allergy Unknown I-RASH Verified 07/10/21 15:21 Objective Vital signs: Temp Pulse Resp BP Pulse Ox 97.4 F L 79 18 187/72 H 98 01/04/22 09:07 01/04/22 09:07 01/04/22 09:07 01/04/22 09:07 01/04/22 09:07 Narrative: General: Alert and oriented x3, no acute distress, pleasant and cooperative, [on room air] Lungs: Respirations even and unlabored, symmetrical chest expansion Eyes: PERRL Musculoskeletal: Flexion and extension of lumbar spine somewhat guarded secondary to pain, antalgic gait noted Neurological: Speech clear, no gross sensory deficit
== END ==
PROVIDERS: Visit Provider Anesthesiology Pain Medicine
DX: M54.16 Radiculopathy, lumbar region (principal); M47.816 Spondylosis without myelopathy or radiculopathy, lumbar region; M48.062 Spinal stenosis, lumbar region with neurogenic claudication
CPT/HCPCS: 99212; G0463

== ENCOUNTER 2022-04-09 09:29 | Outpatient (CLI) | payer MEDICARE, SELFPAY ==
[2022-04-09 10:01] VITALS: BP 148/77; PULSE 70; RESP 20; TEMP 36.9; O2SAT 95
[2022-04-09 10:15] VITALS: BP 145/78; PULSE 68; RESP 20; TEMP 36.9; O2SAT 95
== END 2022-04-09 09:50 | disposition home or self-care (01) ==
LOC: INF 09:31
PROVIDERS: PCP Internal Medicine Adolescent Medicine; Visit Provider Internal Medicine Adolescent Medicine
DX: M81.0 Age-related osteoporosis without current pathological fracture (principal)
CPT/HCPCS: 96372; J0897

== ENCOUNTER → 2022-06-16 08:52 | Outpatient (CLI) | payer MEDICARE, SELFPAY ==
--- NOTE | 2022-06-16 08:57 | XR_ITS ---
FINAL REPORT TECHNIQUE: Bone densitometry calculations of the lumbar spine and left hip were obtained. CLINICAL HISTORY: postmenopausal screening COMPARISON: 08/25/2020 FINDINGS: Using L1-4, the bone mineral density of the spine is 1.027 g/cm2, corresponding to T-score of -0.2 which is normal. Using the left hip, the bone mineral density of the femoral neck is 0.734 g/cm2, corresponding to a T-score of -1.7 consistent with osteopenia. This has improved slightly as compared to the prior exam. Using the right forearm, the bone mineral density of the proximal 3rd is 0.420 g/cm2, corresponding to a T-score of -4.6 consistent with osteoporosis. This is worse as compared to the prior exam. NOTE: T-score: Standard deviation compared with peak bone mass of young adult mean. *Following the recommendations of the International Society of Bone densitometry, classification of hip BMD is based on the lower of two T-scores; total hip or femoral neck. IMPRESSION: Normal bone mineral density in the lumbar spine. Osteopenia in the left femoral neck, slightly improved as compared to the prior exam. Osteoporosis in the right forearm, worsened as compared to the prior exam. Reviewed, Interpreted and Dictated by Jannette Reveles MD Transcribed by Kim Lee Authenticated and [facility]
== END ==
PROVIDERS: PCP Internal Medicine Adolescent Medicine; Visit Provider Nurse Practitioner Family
DX: Z78.0 Asymptomatic menopausal state (principal)
CPT/HCPCS: 77080

== ENCOUNTER 2022-10-12 08:53 | Outpatient (CLI) | payer MEDICARE, SELFPAY ==
[2022-10-12 09:02] VITALS: BP 180/75; PULSE 73; RESP 18; O2SAT 98
== END 2022-10-12 09:20 | disposition home or self-care (01) ==
LOC: INF 08:54
PROVIDERS: PCP Internal Medicine Adolescent Medicine; Visit Provider Internal Medicine Adolescent Medicine
DX: M85.831 Other specified disorders of bone density and structure, right forearm (principal)
CPT/HCPCS: 96372; J0897

== ENCOUNTER → 2022-11-18 13:49 | Outpatient (POV) | payer MEDICARE, SELFPAY ==
--- NOTE | 2022-11-18 13:57 | EXP.PAIN.SOA ---
[facility] Pain Management SOAP Note Subjective:: Patient is a pleasant 77-year-old female who presents today for follow-up. We are currently treating the patient for degenerative disc disease of the lumbar spine with lumbar radiculopathy symptoms, spinal stenosis with neurogenic claudication. Today she rates her pain a 6 out of 10. Patient denies any new trauma or injury. Patient denies any change location or type of pain she experiences. Patient states she continues to have low back pain that radiates into her bilateral lower extremities. She describes this as a aching, throbbing sensation that is worse with increased activity. Patient has had multiple epidurals in the past that provided significant improvement of her symptoms. She was requesting another injection at today's visit. Patient states she does currently use [id number] ibuprofen and Voltaren gel for her pain related symptoms. Patient is not on any scheduled medications. Her Martin is [id number]. Review of Systems: General: No recent weight changes, no fever, no sleep disturbances Respiratory: No cough, no shortness of air, no recurring pulmonary infections Cardiovascular/peripheral vascular: No chest pain, no palpitations, no edema, no shortness of breath Gastrointestinal: No new onset incontinence, normal bowel movements reported Genitourinary: No new onset incontinence Musculoskeletal: Low back pain Psychiatric: [Normal mood/affect] Neurological: [Denies weakness in extremities], [denies balance issues] Objective:: Physical Exam: General: Alert and oriented x3, no acute distress, pleasant and cooperative Lungs: Respirations even and unlabored, symmetrical chest expansion Eyes: PERRL Musculoskeletal: Flexion and extension of lumbar [spine] somewhat guarded secondary to pain, [antalgic gait noted] Neurological: Speech clear, no gross sensory deficit Assessment:: Degenerative disc disease of lumbar spine with lumbar radiculopathy symptoms, spinal stenosis with neurogenic claudication Plan:: Patient continues to experience significant pain in her low back with radiating symptoms into her lower extremities. Patient had limited range of motion of her lumbar spine during today's visit. I have recommended that the patient may benefit from repeat lumbar epidural. Risk and benefits were discussed with the patient. She would like to proceed forward with this plan of care. Patient is not on any blood thinners. We will schedule her for an LESI L4-L5. Patient has been instructed to contact the clinic with any concerns before the next appointment. Dr. Dick has reviewed this note and agrees with this plan of care. This note was dictated using voice recognition software and make contain errors or omissions. [facility] Disclaimer: The information contained in this section may have been updated after the patient was seen, as this information can be updated by other users. Social History Smoking Status: Never smoker alcohol intake: never substance use type: denies use current occupational status: retired Travel in the last 8 weeks: None household members: spouse housing: alf current occupational exposures/hazards: No caffeine: Yes
[2022-11-18 14:16] VITALS: BP 200/99; PULSE 90; RESP 18; O2SAT 97; BMI 35.7
== END ==
PROVIDERS: PCP Internal Medicine Adolescent Medicine; Visit Provider Nurse Practitioner Family
DX: M51.16 Intervertebral disc disorders with radiculopathy, lumbar region (principal); M48.061 Spinal stenosis, lumbar region without neurogenic claudication; Z79.899 Other long term (current) drug therapy
CPT/HCPCS: 99212; G0463

== ENCOUNTER 2022-12-07 10:58 | Day surgery (SDC) | payer MEDICARE, SELFPAY ==
[2022-12-07 11:29] VITALS: BP 193/83; PULSE 68; RESP 18; TEMP 36.6; O2SAT 92; BMI 35.2
[2022-12-07 11:51] VITALS: BP 190/90; PULSE 90; RESP 18; O2SAT 98
--- NOTE | 2022-12-07 11:52 | EXP.PAIN.PRO ---
Procedure Date: 12/07/22 Time: 11:52 Anesthesiologist:: Magnus Franco CRNA Complications:: None Pre-procedure Diagnosis:: Degenerative disc disease of lumbar spine with lumbar radiculopathy symptoms, spinal stenosis with neurogenic claudication Post-procedure Diagnosis:: Same Indications for Procedure:: Patient is a pleasant 77-year-old female who presents today for lumbar epidural steroid injection at L4-L5. We are currently treating the patient for degenerative disc disease of lumbar spine with lumbar radiculopathy symptoms, spinal stenosis with neurogenic claudication. Today she rates her pain a 6 out of 10. Patient denies any new trauma or injury. Patient denies any change in location or type of pain she experiences. Patient states her pain is a aching throbbing sensation that is worse with increased activity and goes from her low back down into her legs. Patient's Martin has been reviewed and is appropriate. Procedure Details:: Informed consent was obtained and the risks and benefits of the procedure were explained to the patient. The patient was taken to the procedure room and noninvasive monitors placed, including noninvasive blood pressure cuff and pulse oximeter. The back was viewed using C-arm Fluoroscopy and prepped using Chloraprep as a cleansing solution and the L4-L5 interspace was palpated. Skin and subcutaneous tissues were anesthetized using lidocaine 1.5% and a 25-gauge needle. After this, an 18-gauge Touhy epidural needle was placed into the L4-L5 interspace and advanced using fluoroscopic guidance and loss of resistance to air until the epidural space was encountered. After confirmation of needle placement in the epidural space, with dye, a solution containing normal saline, 3 mL and Depo-Medrol 80 mg were incrementally injected into the lumbar epidural space. The patient tolerated the procedure well with no complications. The patient was observed in the Pain Clinic and then discharged home neurologically intact. Plan and Disposition:: Patient will return to clinic in 2 weeks for reevaluation of symptoms and follow-up. Patient has been counseled to contact the office with any questions or concerns before the next appointment date. Dr. Dick has read this note and agrees with this plan of care. This note was dictated using voice recognition software and may contain errors or omissions.
[2022-12-07 11:55] VITALS: BP 166/64; PULSE 77; RESP 18; O2SAT 92
[2022-12-07 11:56] VITALS: BP 190/90; PULSE 90; RESP 18; O2SAT 98
== END 2022-12-07 11:55 | disposition home or self-care (01) ==
PROVIDERS: PCP Internal Medicine Adolescent Medicine; Visit Provider Nurse Anesthetist, Certified Registered
DX: M51.16 Intervertebral disc disorders with radiculopathy, lumbar region (principal); M48.062 Spinal stenosis, lumbar region with neurogenic claudication
CPT/HCPCS: 62323; J1040

== ENCOUNTER → 2022-12-20 10:48 | Outpatient (POV) | payer MEDICARE, SELFPAY ==
[2022-12-20 11:20] VITALS: BP 173/68; PULSE 81; RESP 18; O2SAT 97; BMI 35.2
--- NOTE | 2022-12-20 13:09 | EXP.PAIN.SOA ---
[facility] Pain Management SOAP Note Subjective:: Patient is a pleasant 77-year-old female who presents today for follow-up of lumbar epidural steroid injection at L4-L5 on 12/07/2022. We are currently treating the patient for degenerative disc disease of lumbar spine with lumbar radiculopathy symptoms, spinal stenosis with neurogenic claudication. Today she states she has had at least 50% improvement following this injection and feels like it still providing significant relief. Patient states her leg is much better however she still continues to have some back pain. Patient denies any new trauma or injury. Patient denies any change location or type of pain she experiences. Patient does use a cane for ambulation. Patient states she does use [id number] ibuprofen with some additional improvement along with Voltaren gel. Patient is not on any scheduled medications. Her Martin is [id number]. Its been reviewed and appropriate. Review of Systems: General: No recent weight changes, no fever, no sleep disturbances Respiratory: No cough, no shortness of air, no recurring pulmonary infections Cardiovascular/peripheral vascular: No chest pain, no palpitations, no edema, no shortness of breath Gastrointestinal: No new onset incontinence, normal bowel movements reported Genitourinary: No new onset incontinence Musculoskeletal: Low back pain Psychiatric: [Normal mood/affect] Neurological: [Denies weakness in extremities], [denies balance issues] Objective:: Physical Exam: General: Alert and oriented x3, no acute distress, pleasant and cooperative Lungs: Respirations even and unlabored, symmetrical chest expansion Eyes: PERRL Musculoskeletal: Flexion and extension of lumbar [spine] somewhat guarded secondary to pain, [antalgic gait noted] Neurological: Speech clear, no gross sensory deficit ORT score updated with low risk Assessment:: Degenerative disc disease of lumbar spine with lumbar radiculopathy symptoms, spinal stenosis with neurogenic claudication Plan:: Patient has had significant improvement following her lumbar epidural steroid injection and does not require any additional injective therapy at today's visit. Patient did have limited range of motion of her lumbar spine. I have discussed with the patient that I will order her a compounding cream for additional pain relief. I have counseled the patient with her significant kidney issues in the past that she should not be taking any ibuprofen or other NSAIDs and should stick with just Tylenol. Patient will return to clinic in 1 month for reevaluation of symptoms and follow-up. Patient has been instructed to contact the clinic with any concerns before the next appointment. Dr. Dick has reviewed this note and agrees with this plan of care. This note was dictated using voice recognition software and make contain errors or omissions. [facility] Disclaimer: The information contained in this section may have been updated after the patient was seen, as this information can be updated by other users. Social History Smoking Status: Never smoker alcohol intake: never substance use type: denies use current occupational status: retired Travel in the last 8 weeks: None household members: spouse housing: longterm current occupational exposures/hazards: No caffeine: Yes
== END ==
PROVIDERS: PCP Internal Medicine Adolescent Medicine; Visit Provider Nurse Practitioner Family
DX: M51.16 Intervertebral disc disorders with radiculopathy, lumbar region (principal); M48.062 Spinal stenosis, lumbar region with neurogenic claudication
CPT/HCPCS: 99212; G0463

== ENCOUNTER → 2023-01-13 09:46 | Outpatient (POV) | payer MEDICARE, SELFPAY ==
--- NOTE | 2023-01-13 10:05 | EXP.PAIN.SOA ---
[facility] Pain Management SOAP Note Subjective:: Patient is a pleasant 77-year-old female who presents today for follow-up. We are currently treating the patient for degenerative disc disease of lumbar spine with lumbar radiculopathy symptoms, spinal stenosis with neurogenic claudication. Today she rates her pain a 8 out of 10. Patient denies any new trauma or injury. Patient denies any change location or type of pain she experiences. Patient states she continues to experience significant pain in her bilateral hips with radiating symptoms down her legs. Patient does state her left leg is worse compared to her right. Patient does describe this as an aching sensation that is worse with increased activity. Patient has discontinued ibuprofen use from our last visit where we did discuss with her lower kidney function that she did not need to take this medication. Patient states she does now use the Tylenol arthritis with some improvement along with a compounding cream. Patient does state that she has more trouble sleeping at night due to the pain. Patient is not on any other scheduled medications. Her Martin is [id number]. Its been reviewed and appropriate. Review of Systems: General: No recent weight changes, no fever, no sleep disturbances Respiratory: No cough, no shortness of air, no recurring pulmonary infections Cardiovascular/peripheral vascular: No chest pain, no palpitations, no edema, no shortness of breath Gastrointestinal: No new onset incontinence, normal bowel movements reported Genitourinary: No new onset incontinence Musculoskeletal: Bilateral hip pain, leg pain Psychiatric: [Normal mood/affect] Neurological: [Denies weakness in extremities], [denies balance issues] Objective:: Physical Exam: General: Alert and oriented x3, no acute distress, pleasant and cooperative Lungs: Respirations even and unlabored, symmetrical chest expansion Eyes: PERRL Musculoskeletal: Flexion and extension of lumbar [spine] somewhat guarded secondary to pain, [antalgic gait noted] Neurological: Speech clear, no gross sensory deficit Assessment:: Degenerative disc disease of lumbar spine with lumbar radiculopathy symptoms, spinal stenosis with neurogenic claudication Plan:: Patient does experience significant pain in her low back with radiating symptoms into her hips and legs. Patient did have limited range of motion of her lumbar spine during today's visit. I have discussed with the patient that she may benefit from a repeat lumbar epidural steroid injection. Risk and benefits were discussed with her at today's visit. At this time the patient would like to wait however she states she will call our office if she decides to schedule this lumbar epidural which would be at L5-S1. Patient is not on any blood thinners. I will order the patient baclofen 5 mg at bedtime and provide a 1 month supply of this medication. I have counseled the patient that I will get of a few additional tablets for her to try as needed during the day however this may cause additional drowsiness. Patient will return to clinic in 3 months for reevaluation of symptoms, medication refill and follow-up. Patient has been instructed to contact the clinic with any concerns before the next appointment. Dr. Dick has reviewed this note and agrees with this plan of care. This note was dictated using voice recognition software and make contain errors or omissions. [facility] Disclaimer: The information contained in this section may have been updated after the patient was seen, as this information can be updated by other users. Social History Smoking Status: Never smoker alcohol intake: never substance use type: denies use current occupational status: retired Travel in the last 8 weeks: None household members: spouse housing: group home current occupational exposures/hazards: No caffeine: Yes
[2023-01-13 10:23] VITALS: BP 116/86; PULSE 79; RESP 18; O2SAT 97; BMI 35.2
== END | disposition home or self-care (01) ==
PROVIDERS: PCP Internal Medicine Adolescent Medicine; Visit Provider Nurse Practitioner Family
DX: M51.16 Intervertebral disc disorders with radiculopathy, lumbar region (principal); M48.062 Spinal stenosis, lumbar region with neurogenic claudication; Z79.899 Other long term (current) drug therapy
CPT/HCPCS: 99212; G0463

== ENCOUNTER 2023-04-11 09:03 | Outpatient (CLI) | payer MEDICARE, SELFPAY ==
[2023-04-11 09:17] VITALS: BP 146/61; PULSE 72; RESP 18; TEMP 37.2; O2SAT 96
== END 2023-04-11 09:17 | disposition home or self-care (01) ==
LOC: INF 09:04
PROVIDERS: PCP Internal Medicine Adolescent Medicine; Visit Provider Internal Medicine Adolescent Medicine
DX: M85.89 Other specified disorders of bone density and structure, multiple sites (principal)
CPT/HCPCS: 96372; J0897

== ENCOUNTER → 2023-04-14 09:03 | Outpatient (POV) | payer MEDICARE, SELFPAY ==
[2023-04-14 09:09] VITALS: BP 176/90; PULSE 89; RESP 18; O2SAT 98; BMI 34.9
--- NOTE | 2023-04-14 09:29 | EXP.PAIN.SOA ---
[facility] Pain Management SOAP Note Subjective:: Patient is a pleasant 77-year-old female who presents today for follow-up. We are currently treating the patient for degenerative disc disease of lumbar spine with lumbar radiculopathy symptoms, spinal stenosis with neurogenic claudication symptoms. Today she rates her pain a 10 out of 10. Patient denies any new trauma or injury. She states her pain is severe in her low back with radiating symptoms into her left leg. She does describe this as a constant aching sensation that is worse with increased activity. Patient states that she has trouble walking due to the pain and frequently has to take multiple breaks. She states the pain is interfering with her ability to perform activities of daily living such as cooking and cleaning. Patient has had multiple injections in the past including lumbar epidurals that did provide significant relief. Patient does have altered kidney function and cannot tolerate any NSAIDs. She does use Tylenol arthritis and compounding cream as needed. Patient has also tried muscle relaxers in the past and states they did help provide additional relief. She is not on any scheduled medications. Her Martin is [id number]. It was reviewed and is appropriate. Review of Systems: General: No recent weight changes, no fever, no sleep disturbances Respiratory: No cough, no shortness of air, no recurring pulmonary infections Cardiovascular/peripheral vascular: No chest pain, no palpitations, no edema, no shortness of breath Gastrointestinal: No new onset incontinence, normal bowel movements reported Genitourinary: No new onset incontinence Musculoskeletal: Low back pain, left leg pain Psychiatric: [Normal mood/affect] Neurological: [Denies weakness in extremities], [denies balance issues] Objective:: Physical Exam: General: Alert and oriented x3, no acute distress, pleasant and cooperative Lungs: Respirations even and unlabored, symmetrical chest expansion Eyes: PERRL Musculoskeletal: Flexion and extension of lumbar [spine] somewhat guarded secondary to pain, [antalgic gait noted] Neurological: Speech clear, no gross sensory deficit FINDINGS: The spinal cord ends at the L1 level. There is mild lumbar scoliosis convex left with a rotary component with multilevel degenerative changes as described below. T10-T11: Degenerative disc disease with mild left foraminal narrowing from facet hypertrophic change. T11-T12: Mild degenerative disc disease with mild bulging disc with mild right-sided foraminal narrowing. T12-L1: Degenerative disc disease with bulging disc which is eccentric toward the right with mild right-sided foraminal narrowing. L1-L2: Degenerative disc disease with bulging discs somewhat eccentric toward the right with bilateral foraminal narrowing right greater than left. L2-L3: Degenerative disc disease with concentric bulging disc and facet hypertrophic change with moderate severe right-sided foraminal narrowing and mild left foraminal narrowing. L3-L4: Mild degenerative disc disease with mild bulging disc L4-5: Severe degenerative disc disease with type II endplate changes with bulging disc with associated facet and ligamentum flavum hypertrophy with moderate to severe left-sided foraminal narrowing and moderate left-sided lateral recess narrowing. There is a broad-based left foraminal and lateral disc protrusion with disc osteophyte complex contributing to the foraminal narrowing on the left. L5-S1: Degenerative disc disease with bulging disc along with facet and ligamentum flavum hypertrophy. There is severe left-sided foraminal narrowing from the bulging disc and facet hypertrophic change and moderate right-sided foraminal narrowing. No canal stenosis or extruded herniated disc. IMPRESSION: Abnormal MRI of the lumbar spine with multilevel lumbar spondylosis with degenerative disc disease, bulging disc, and facet and ligamentum flavum hypertrophy. This results in varying degree
== END ==
PROVIDERS: PCP Internal Medicine Adolescent Medicine; Visit Provider Nurse Practitioner Family
DX: M51.16 Intervertebral disc disorders with radiculopathy, lumbar region (principal); M48.061 Spinal stenosis, lumbar region without neurogenic claudication
CPT/HCPCS: 99212; G0463

== ENCOUNTER 2023-04-29 11:50 | Day surgery (SDC) | payer MEDICARE, SELFPAY ==
[2023-04-29 11:53] VITALS: BP 175/83; PULSE 72; RESP 18; TEMP 36.7; O2SAT 96; BMI 34.9
[2023-04-29 12:10] VITALS: BP 189/90; PULSE 82; RESP 18; O2SAT 97
[2023-04-29 12:11] VITALS: BP 189/90; PULSE 76; RESP 18; O2SAT 96
[2023-04-29 12:14] VITALS: BP 162/66; PULSE 70; RESP 18; O2SAT 98
--- NOTE | 2023-04-29 16:34 | P.PCN_ITS ---
Procedure Date: 04/29/23 Time: 16:34 Anesthesiologist:: Sumeet Dick MD Complications:: None Pre-procedure Diagnosis:: Degenerative disc disease of lumbar spine with lumbar radiculopathy symptoms Post-procedure Diagnosis:: Same Indications for Procedure:: This patient is a pleasant 77-year-old white female who we are treating for low back pain with lumbar radiculopathy symptoms. Most of her pain is down her left side. She does have scoliosis. She presents for left L4-L5 and L5-S1 trans foraminal epidural steroid injection today to see if this helps with her lumbar radicular symptoms. Procedure Details:: Transforaminal epidural steroid injection Informed consent was obtained risk and benefits of the procedure explained to the patient. Patient was taken the procedure room. The back was prepped using ChloraPrep. The skin and subcutaneous tissues were anesthetized using lidocaine. A 22-gauge spinal needle was inserted into the intervertebral foramen of L4-L5 and L5-S1. Needle placement was confirmed with dye in AP and lateral view. We then injected 5 mL bupivacaine 0.25% and Depo-Medrol 40 mg into each transforaminal epidural space of L4-L5 and L5-S1. Patient tolerated the procedure well with no complications. Plan and Disposition:: We will follow-up with this patient in 2 weeks. Will reevaluate symptoms at that time.
== END 2023-04-29 12:16 | disposition home or self-care (01) ==
PROVIDERS: PCP Nurse Practitioner Family; Visit Provider Anesthesiology
DX: M51.16 Intervertebral disc disorders with radiculopathy, lumbar region (principal)
CPT/HCPCS: 64483; 64484; J1040

== ENCOUNTER → 2023-05-12 09:31 | Outpatient (POV) | payer MEDICARE, SELFPAY ==
[2023-05-12 09:40] VITALS: BP 132/84; PULSE 84; RESP 18; O2SAT 98; BMI 34.9
--- NOTE | 2023-05-12 09:41 | EXP.PAIN.SOA ---
[facility] Pain Management SOAP Note Subjective:: Patient is a pleasant 77-year-old female who presents today for follow-up of left transforaminal epidural steroid injection of L4-L5 and L5-S1 on 04/29/2023. We are currently treating the patient for degenerative disc disease of lumbar spine with lumbar radiculopathy symptoms, spinal stenosis with neurogenic claudication symptoms. Today she rates her pain a 0 out of 10. Patient states that she has had 100% improvement following this injection and is only complaining of a little back stiffness now. Patient states that she has been able to increase her activity with decreased pain symptoms and been able to move around much easier. Patient does use Tylenol arthritis along with compounding cream as needed however she states she has not had to use this as often following this injection. Patient cannot tolerate any NSAIDs related to altered kidney function. Patient is not on any scheduled medications. Her Martin is [id number]. Its been reviewed and appropriate. Review of Systems: General: No recent weight changes, no fever, no sleep disturbances Respiratory: No cough, no shortness of air, no recurring pulmonary infections Cardiovascular/peripheral vascular: No chest pain, no palpitations, no edema, no shortness of breath Gastrointestinal: No new onset incontinence, normal bowel movements reported Genitourinary: No new onset incontinence Musculoskeletal: Low back pain Psychiatric: [Normal mood/affect] Neurological: [Denies weakness in extremities], [denies balance issues] Objective:: Physical Exam: General: Alert and oriented x3, no acute distress, pleasant and cooperative Lungs: Respirations even and unlabored, symmetrical chest expansion Eyes: PERRL Musculoskeletal: Flexion and extension of lumbar [spine] somewhat guarded secondary to pain, [antalgic gait noted] Neurological: Speech clear, no gross sensory deficit Assessment:: Degenerative disc disease of lumbar spine with lumbar radiculopathy symptoms, spinal stenosis with neurogenic claudication symptoms Plan:: Patient has had 100% improvement following her transforaminal epidural steroid injection and does not require any additional injective therapy at this time. Patient will return to clinic in 1 month for reevaluation of symptoms and plan of care. Patient has been instructed to contact the clinic with any concerns before the next appointment. Dr. Dick has reviewed this note and agrees with this plan of care. This note was dictated using voice recognition software and make contain errors or omissions. [facility] Disclaimer: The information contained in this section may have been updated after the patient was seen, as this information can be updated by other users. Medical History Arthritis GERD (gastroesophageal reflux disease) Hyperlipidemia Hypertension Lumbar stenosis Osteoporosis Thyroid disease Social History Smoking Status: Never smoker alcohol intake: never substance use type: denies use current occupational status: retired Travel in the last 8 weeks: None household members: spouse housing: correction current occupational exposures/hazards: No caffeine: Yes
== END ==
PROVIDERS: PCP Nurse Practitioner Family; Visit Provider Nurse Practitioner Family
DX: M51.16 Intervertebral disc disorders with radiculopathy, lumbar region (principal); M48.062 Spinal stenosis, lumbar region with neurogenic claudication
CPT/HCPCS: 99212; G0463

== ENCOUNTER 2023-07-09 21:34 | Emergency (ER) | payer MEDICARE, SELFPAY ==
[2023-07-09 21:35] VITALS: BP 175/73; PULSE 83; RESP 20; TEMP 37.2; O2SAT 93; BMI 33.7
[2023-07-09 22:00] VITALS: BP 158/77; PULSE 84; O2SAT 92
--- NOTE | 2023-07-09 22:05 | PC.NURSE ---
Pt provided with pillow and blanket
[2023-07-09 22:12] LABS: Influenza A, PCR Not Detected (NotDetected); Influenza B, PCR Not Detected (NotDetected)
--- NOTE | 2023-07-09 22:13 | PC.NURSE ---
Dr. Urena at BS to speak with pt
--- NOTE | 2023-07-09 22:19 | XR_ITS ---
PROCEDURE INFORMATION: Exam: XR Chest Exam date and time: 07/09/2023 10:30 PM Age: 78 years old Clinical indication: Cough TECHNIQUE: Imaging protocol: Radiologic exam of the chest. Views: 1 view. COMPARISON: 1. ABDPELW/WO CT ABD PELVIS W/WO CONTRAST 05/18/2017 9:21 AM 2. DX [id number] XR thoracic spine 3V 06/15/2018 3:07 PM FINDINGS: Tubes, catheters and devices: Surgical clips project over the right upper quadrant. Lungs: The lungs are adequately inflated. No focal consolidation. Pleural spaces: Suggestion of small left pleural effusion. No pneumothorax. Heart/Mediastinum: Cardiomediastinal silhouette is normal size. Hiatal hernia. Vasculature: Calcific atherosclerosis of the aorta. Bones/joints: No displaced fracture. Globular mineralization about the right humeral head and may represent calcific tendinosis. Degenerative changes spine. Intraperitoneal space: The visualized abdomen is unremarkable. IMPRESSION: 1. Suggestion of small left pleural effusion. 2. Other findings as above.
[2023-07-09 22:30] VITALS: BP 165/79; PULSE 85; O2SAT 92
--- NOTE | 2023-07-09 22:33 | PC.NURSE ---
xray at bs
[2023-07-09 22:36] LABS: Coronavirus 19, PCR Detected (NotDetected)
--- NOTE | 2023-07-09 22:54 | HMH.EDGENADL ---
Discharge Plan Disposition Patient Disposition: Home, Self-Care Condition: Good Prescriptions Prescriptions: New Paxlovid 300 mg (150 mg x 2)-100 mg tablets,dose pack See Rx Instructions .ROUTE .COMPLEX Qty: 30 0RF Rx Instructions: take TWO 150 mg tablets of nirmatrelvir with ONE 100 mg tablet of ritonavir twice daily for 5 days No Action erythromycin 5 mg/gram (0.5 %) ointment 1 applic OPHTHALMIC DAILY 7 Days Qty: 1 0RF esomeprazole magnesium 40 mg capsule,delayed release(DR/EC) 40 mg PO DAILY levothyroxine 50 mcg capsule 50 mcg PO DAILY metoprolol succinate 100 mg tablet extended release 24 hr 100 mg PO DAILY aspirin [Adult Low Dose Aspirin] 81 mg tablet,delayed release (DR/EC) 81 mg PO DAILY estradiol [Estrace] 0.01 % (0.1 mg/gram) cream 1 g VAGINAL ONCE atorvastatin [Lipitor] 40 mg tablet 40 mg PO DAILY mirabegron [Myrbetriq] 50 mg tablet extended release 24 hr 50 mg PO Q24H gabapentin 100 MG capsule 100 mg PO HS tramadol 50 MG tablet 50 mg PO BID baclofen 5 mg tablet 5 mg PO HS Referrals Follow up/Referrals: Munira Contreras APRN [Primary Care Provider] - See instructions Activity Restrictions/Add. Instructions Additional Instructions/Restrictions: At this time is felt you are safe to be discharged home. If new or worsening symptoms please do not hesitate to return the emergency department. Please follow-up with Dr. Kirby early next week as you are able and take your medication as prescribed. Clinical Impressions Clinical Impression: COVID-19 Discharge ED Provider: Derek Urena General Adult HPI General Chief complaint: Upper Respiratory Infection Stated complaint: Covid + and Vomiting Time Seen by Provider: 07/09/23 21:50 Mode of Arrival: Wheelchair Source of Information: Patient and Relative Limitations: No Limitations Description of Symptoms (Recalled from ER Triage Doc. by RN): pt reports that she had a pos covid test this morning the pt has had cough and congestion that started yesterday the pt family reports the pt has been experiencing weakness and near sencopal episodes that included her falling out of her chair and hitting her face today. the pt states no pain in her face she is just concerned about covid History of Present Illness HPI narrative: Patient is an 78-year-old female with no pertinent past medical history presents emergency department for evaluation of shortness of breath. Patient has had multiple sick contacts with COVID, over the last 24 hours she has had muscle aches, body weakness, intermittent cough and shortness of breath, no chest pain. Adequate p.o. intake. No other acute complaints at this time. Related Data Home Medications Medication Instructions Recorded Confirmed aspirin 81 mg tablet,delayed 81 mg PO DAILY Heart disease 02/28/18 05/12/23 release (Adult Low Dose Aspirin) atorvastatin 40 mg tablet (Lipitor) 40 mg PO DAILY Cholesterol 02/28/18 05/12/23 esomeprazole magnesium 40 mg 40 mg PO DAILY GERD 02/28/18 05/12/23 capsule,delayed release estradiol 0.01% (0.1 mg/gram) 1 g VAGINAL ONCE hormone 02/28/18 05/12/23 vaginal cream (Estrace) levothyroxine 50 mcg capsule 50 mcg PO DAILY thyroid 02/28/18 05/12/23 metoprolol succinate 100 mg 100 mg PO DAILY Heart disease 02/28/18 05/12/23 tablet,extended release 24 hr mirabegron 50 mg tablet,extended 50 mg PO Q24H . 02/28/18 05/12/23 release 24 hr (Myrbetriq) gabapentin 100 mg capsule 100 mg PO HS Pain 12/07/19 05/12/23 tramadol 50 mg tablet 50 mg PO BID Pain 07/10/21 05/12/23 baclofen 5 mg tablet 5 mg PO HS Pain 04/14/23 05/12/23 Previous Rx's Medication Instructions Recorded erythromycin 5 mg/gram (0.5 %) eye 1 applic OPHTHALMIC DAILY 06/20/19 ointment hordeolum 7 days #1 g nirmatrelvir 300 mg (150 mg See Rx Instructions PO .COMPLEX 07/09/23 x2)-ritonavir 100 mg tablet,dose #30 tabs pack (Paxlovid) Allerg
[2023-07-09 23:00] VITALS: BP 167/76; PULSE 81; O2SAT 92
[2023-07-09 23:04] LABS: Basophils % 0.2 % (0.1-2.0); Eosinophils % 0.3 % (0.1-12.0); Hematocrit 42.8 % (37.0-47.0); Lymphocytes # 0.7 K/mm3 (0.7-4.5); Lymphocytes % 7.3 % (10-50); Mean Corpuscular HGB Conc 32.6 g/dL (31.8-35.4); Mean Corpuscular Hemoglobin 29.1 pg (27.0-31.2); Mean Corpuscular Volume 89.2 fl (81-99); Mean Platelet Volume 8.8 fl (7.4-10.4); Monocytes # 0.5 K/mm3 (0.1-1.0); Monocytes % 4.8 % (1.7-9.3); Neutrophils # 8.5 K/mm3 (1.8-7.8); Neutrophils % 87.4 % (37.0-80.0); Platelet Count 186 K/mm3 (142-424); Red Cell Distribution Width 13.9 % (11.5-17.5); White Blood Count 9.7 K/mm3 (4.8-10.8)
--- NOTE | 2023-07-09 23:05 | PC.NURSE ---
PT provided with bottle of water
[2023-07-09 23:09] LABS: Alanine Aminotransferase 20 U/L (12-78); Albumin Level 4.1 g/dl (3.5-5.0); Albumin/Globulin Ratio 1.2 (1.1-1.8); Alkaline Phosphatase 71 U/L (38-126); Aspartate Amino Transferase 40 U/L (14-36); Bilirubin,Total 0.4 mg/dl (0.2-1.3); Blood Urea Nitrogen 10 mg/dl (7-17); Calcium 8.8 mg/dl (8.4-10.2); Carbon Dioxide 26 mmol/L (22.0-30.0); Chloride 101 mmol/L (98-107); Creatinine Clearance Estimated 56 mL/min (50-200); Estimated Glomerular Filt Rate 81 ml/min (>60); GFR (African American) 97 ML/MIN (>60); Globulin 3.3 g/dL (1.3-3.2); Glucose 111 mg/dl (74-100); Sodium 137 mmol/L (136-145); Total Protein,Serum 7.4 g/dl (6.3-8.2)
[2023-07-09 23:17] LABS: MANUAL DIFFERENTIAL MANUAL DIFFERENTIAL (MANUAL DIFF)
[2023-07-09 23:30] VITALS: BP 164/75; PULSE 81; O2SAT 92
[2023-07-09 23:33] LABS: Lymphocytes % 14 % (10-50); Monocytes % 2 % (2-9); Neutrophils % 84 % (42-76); Platelet Estimate Normal; RBC Morphology Normal; Total Cells Counted 100
--- NOTE | 2023-07-09 23:39 | PC.NURSE ---
Pt assisted to walk around room. Pt able to walk with assistance. Pt uses walker at home. Dr. Urena to BS
[2023-07-10 00:07] VITALS: BP 164/75; PULSE 68; RESP 18; TEMP 537.1; TEMP 998.8; O2SAT 96
== END 2023-07-10 00:12 | disposition home or self-care (01) ==
PROVIDERS: Emergency Provider Emergency Medicine; PCP Nurse Practitioner Family
DX: U07.1 COVID-19 (principal); R11.10 Vomiting, unspecified; R06.02 Shortness of breath; I10 Essential (primary) hypertension; E78.5 Hyperlipidemia, unspecified; E07.9 Disorder of thyroid, unspecified; K21.9 Gastro-esophageal reflux disease without esophagitis; M81.0 Age-related osteoporosis without current pathological fracture
CPT/HCPCS: 71045; 80053; 85007; 85025; 87636; 96361; 96374; 99285; J0131

== ENCOUNTER → 2023-09-27 08:58 | Outpatient (CLI) | payer MEDICARE, SELFPAY ==
--- NOTE | 2023-09-27 09:05 | XR_ITS ---
FINAL REPORT CLINICAL HISTORY: OSTEOPOROSIS FINDINGS: Using L1-4, the bone mineral density of the spine is 1.075 g/cm2, corresponding to T-score of 0.3 equivalent to normal. Using the left hip, the bone mineral density of the femoral neck is 0.727 g/cm2, corresponding to a T-score of -1.8 equivalent to osteopenia. Using the radius, the bone mineral density of the distal third is 0.500 g/cm2, corresponding to a T-score of -3.2 equivalent to osteoporosis. IMPRESSION: Diminished bone mineral density of the left hip consistent with osteopenia in distal third of the radius consistent with osteoporosis. Normal bone mineral density of the lumbar spine. Reviewed, Interpreted and Dictated by Jannette Reveles MD Transcribed by Gordy Parker Authenticated and . [facility]
== END ==
PROVIDERS: PCP Nurse Practitioner Family; Visit Provider Nurse Practitioner Family
DX: M81.0 Age-related osteoporosis without current pathological fracture (principal)
CPT/HCPCS: 77080

== ENCOUNTER 2023-10-17 08:59 | Outpatient (CLI) | payer MEDICARE, SELFPAY ==
[2023-10-17 09:09] VITALS: BP 170/72; PULSE 84; RESP 18; TEMP 36.4; O2SAT 96
== END 2023-10-17 09:30 | disposition home or self-care (01) ==
LOC: INF 09:01
PROVIDERS: PCP Nurse Practitioner Family; Visit Provider Nurse Practitioner Family
DX: M81.0 Age-related osteoporosis without current pathological fracture (principal)
CPT/HCPCS: 96372; J0897

== ENCOUNTER 2024-04-17 08:34 | Outpatient (CLI) | payer MEDICARE, SELFPAY ==
[2024-04-17] MEDS: DENOSUMAB 60 MG/ML SYRINGE SQ (08:45)
[2024-04-17 08:48] VITALS: BP 178/72; PULSE 69; RESP 18; O2SAT 97
== END 2024-04-17 08:48 | disposition home or self-care (01) ==
LOC: INF 08:36
PROVIDERS: PCP Nurse Practitioner Family; Visit Provider Nurse Practitioner Family
DX: M81.0 Age-related osteoporosis without current pathological fracture (principal)
CPT/HCPCS: 96372; J0897

== ENCOUNTER 2024-09-06 10:52 | Outpatient (CLI) | payer MEDICARE, SELFPAY ==
--- NOTE | 2024-09-06 10:58 | XR_ITS ---
FINAL REPORT CLINICAL HISTORY: left hip pain COMPARISON: None FINDINGS: LEFT HIP: Two views of the left hip and an AP pelvis demonstrate no acute fracture or dislocation. There are marked advanced hypertrophic changes of osteoarthritis. Subchondral sclerosis is noted with degenerative subchondral cyst formation in the acetabulum. The visualized bony structures are well aligned. No soft tissue abnormality is seen. A right hip prosthesis is present. IMPRESSION: Marked advanced changes of osteoarthritis left hip. Reviewed, Interpreted and Dictated by Oscar Grant MD Transcribed by Pita Calvillo Authenticated and [facility]
--- NOTE | 2024-09-06 10:58 | XR_ITS ---
FINAL REPORT CLINICAL HISTORY: PAIN, lbp/left hip pain COMPARISON: None FINDINGS: LUMBOSACRAL SPINE SERIES 6 views of the lumbosacral spine were obtained. There is no fracture present. There is no malalignment. There are advanced hypertrophic changes of degenerative disc disease L1-2 through L5-S1. There is moderate lumbar scoliosis convex to the left measuring 40 degrees. IMPRESSION: Marked advanced changes of degenerative disc disease with degenerative scoliosis. Reviewed, Interpreted and Dictated by Oscar Grant MD Transcribed by Pita Calvillo Authenticated and [facility]
== END 2024-09-06 23:59 | disposition home or self-care (01) ==
LOC: RAD 10:54
PROVIDERS: PCP Nurse Practitioner Family; Visit Provider Nurse Practitioner Family
DX: M25.552 Pain in left hip (principal)
CPT/HCPCS: 72110; 73502

== ENCOUNTER 2025-01-07 16:11 | Outpatient (CLI) | payer MEDICARE, SELFPAY ==
--- NOTE | 2025-01-07 16:18 | XR_ITS ---
FINAL REPORT CLINICAL HISTORY: T AND L SPINE FINDINGS: THORACIC SPINE Two views were obtained. There is no acute fracture. There is dextroscoliosis. There is multilevel degenerative disc disease, most pronounced in the lower thoracic spine. There is likely a large hiatal hernia. There is no malalignment. IMPRESSION: Degenerative disc disease as above. LUMBAR SPINE Five views were obtained. There is no acute fracture. There is levoscoliosis. There is advanced multilevel degenerative disc disease, most pronounced at L3-4 and L4-5. There is no malalignment. IMPRESSION: Multilevel degenerative disc disease. Reviewed, Interpreted and Dictated by Jannette Reveles MD Transcribed by Ava Gonzalez Authenticated and [facility]
== END 2025-01-07 23:59 | disposition home or self-care (01) ==
LOC: RAD 16:12
PROVIDERS: PCP Nurse Practitioner Family; Visit Provider Nurse Practitioner Family
DX: M53.9 Dorsopathy, unspecified (principal); M81.0 Age-related osteoporosis without current pathological fracture
CPT/HCPCS: 72084

== ENCOUNTER 2025-05-02 11:03 | Outpatient (CLI) | payer MEDICARE, SELFPAY ==
[2025-05-02 11:10] VITALS: BP 140/61; PULSE 80; RESP 16; TEMP 36.7; O2SAT 98
[2025-05-02] MEDS: DENOSUMAB 60 MG/ML SYRINGE SUBCUT (11:10)
--- OUTSIDE RECORDS SUMMARY | 2025-05-02 13:08 | XMS_ITS | Clinical Summary ---
Author Organization [facility] Address [address] [place] [address] Care Team Providers Care Clerk Travel Reservations Name Role Phone Kyree Easley MD Primary Care Provider [phone] Family History Medical History Relation Name Comments Bone cancer Father Conversions - Other Father Relation Name Status Comments Father Social History Tobacco Use Types Packs/Day Years Used Date Smoking Tobacco: Never Alcohol Use Standard Drinks/Week Comments No 0 (1 standard drink = 0.6 oz pure alcohol) Alcoholic Drinks/day: Never Drank Alcohol Comments Unknown Sex and Gender Information Value Date Recorded Sex Assigned at Not on file Legal Sex Female 6:05 PM EDT Gender Identity Not on file Sexual Orientation Not on file Last Filed Vital Signs Vital Sign Reading Time Taken Comments Blood Pressure - - Pulse - - Temperature - - Respiratory Rate - - Oxygen Saturation - - Inhaled Oxygen Concentration - - Weight 96.2 kg (212 lb 2 oz) 06/24/2014 11:28 AM EDT Height 157.5 cm (5' 2 ) 06/24/2014 11:28 AM EDT Body Mass Index 38.8 06/24/2014 11:28 AM EDT Plan of Treatment Not on file Care Teams Clerk Travel Reservations Relationship Specialty Start Date End Date Kyree Easley MD [address] [place] [address] PCP - General 04/03/21
== END 2025-05-02 11:25 | disposition home or self-care (01) ==
LOC: INF 11:04
PROVIDERS: PCP Nurse Practitioner Family; Visit Provider Nurse Practitioner Family
DX: M81.0 Age-related osteoporosis without current pathological fracture (principal)
CPT/HCPCS: 96372; J0897

== ENCOUNTER 2025-11-04 09:34 | Outpatient (CLI) | payer MEDICARE, SELFPAY ==
--- NOTE | 2025-11-04 09:37 | XR_ITS ---
FINAL REPORT CLINICAL HISTORY: screening COMPARISON: 09/27/2023 FINDINGS: Using L1-4, the bone mineral density of the spine is 1.150 g/cm2, corresponding to T-score of 0.9. This is consistent with normal. The bone mineral density change from baseline is 21.6%. Using the left forearm, the bone mineral density of the mid is 0.383 g/cm2, corresponding to a T-score of 0.7. This is consistent with osteopenia. The bone mineral density change from baseline is 2.5%. NOTE: T-score: Standard deviation compared with peak bone mass of young adult mean. *Following the recommendations of the International Society of Bone densitometry, classification of hip BMD is based on the lower of two T-scores; total hip or femoral neck. IMPRESSION: Normal bone mineral density of the lumbar spine. Diminished bone mineral density of the left forearm consistent with osteopenia. Reviewed, Interpreted and Dictated by Oscar Grant MD Transcribed by Melody Zaragoza Authenticated and [facility]
[2025-11-04] MEDS: DENOSUMAB 60 MG/ML SYRINGE SUBCUT (10:19)
[2025-11-04 10:20] VITALS: BP 144/85; PULSE 78; RESP 19; O2SAT 95
== END 2025-11-04 23:59 | disposition home or self-care (01) ==
LOC: RAD 09:34 → INF 10:13
PROVIDERS: PCP Nurse Practitioner Family; Visit Provider Nurse Practitioner Family
DX: M81.0 Age-related osteoporosis without current pathological fracture (principal)
CPT/HCPCS: 77080; 96372; J0897